=== PATIENT | female | born 1990 | race Hispanic/Latino ===

== ENCOUNTER 2020-08-23 09:19 | Inpatient (IN) | payer BC ==
[2020-08-23] MEDS ORDERED: NS / Oxytocin 40 units/1000ml 1,000 ML IV PRN (10:14)
[2020-08-23] MEDS ORDERED: Lidocaine 1% (PF) 30 ML VIAL SC PRN ×2 (10:14→10:30)
[2020-08-23] MEDS ORDERED: NS w/ Oxytocin 10 units 500 ML IV SCH ×2 (10:15)
[2020-08-23] MEDS ORDERED: Penicillin G Potassium 5 MILL.UNITS in Sodium Chloride 0.9% 100 ML IVPB SCH (10:15)
[2020-08-23] MEDS ORDERED: Misoprostol 100 MCG TAB VAG SCH (10:15)
--- NOTE | 2020-08-23 10:16 | PDOC.BPN ---
- Brief Progress Note Encounter Date: 08/23/20 Encounter Time: 10:09 FACULTY H&P Patient of Dr Aguilar HPI: 30 yo with 2 prior term deliveries here with possible LOF since last OM. Stated LOF last night and through the night and this AM. Denies VB or other complications. Good FM. EGA 35 weeks Review of Systems: complete ROS negative as per HPI Allergies NONE Past medical: Not significant PHYSICAL: VSS afebrile SSE with clear pooling. sent CX Cephalic on sono monitors: Reactive NST, no CTX Assessment and Plan: Prelabor ROM at 35 weeks: 1. admit 2. Swab for GBS 3. PNG until GBS back 4. Offered steroids as under 36 weeks 6 days. ALPS data and possible nondevelopment issues reviewed as well. They will consider. 5. Cytotec I have tiger texted Dr Funez to notify her but have not heard back yet
[2020-08-23 10:18] LABS: Amnisure Test RUPTURE DETECTED (No Rupture)
[2020-08-23 10:19] LABS: Amnisure Internal Control QC ACCEPTABLE (ACCEPTABLE)
[2020-08-23 10:24] VITALS: BMI 34.4
[2020-08-23] MEDS ORDERED: Ibuprofen 800 MG TAB PO PRN (10:30)
[2020-08-23] MEDS ORDERED: Butorphanol Tartrate 1 MG/ML VIAL SLOW IVP PRN (10:30)
[2020-08-23] MEDS ORDERED: Promethazine HCl 25 MG/ML VIAL IM PRN (10:30)
[2020-08-23] MEDS ORDERED: Misoprostol 200 MCG TAB PR PRN (10:30)
[2020-08-23] MEDS ORDERED: Ondansetron PF 4 MG/2 ML Vial IVP PRN (10:30)
[2020-08-23] MEDS ORDERED: Methylergonovine 0.2 MG/ML VIAL IM PRN (10:30)
[2020-08-23] MEDS ORDERED: Carboprost 250 MCG/ML AMP IM PRN (10:30)
[2020-08-23] MEDS ORDERED: Acetaminophen 500 MG TAB PO PRN (10:30)
[2020-08-23] MEDS ORDERED: HYDROcodone/Acetaminophen 5/325 mg Tablet PO PRN (10:30)
[2020-08-23] MEDS ORDERED: Diphenoxylate HCl/Atropine Tablet PO PRN (10:30)
[2020-08-23] MEDS ORDERED: hydrALAZINE 20 MG/ML VIAL SLOW IVP PRN (10:30)
--- NOTE | 2020-08-23 10:56 | PDOC.BPN ---
- Brief Progress Note Encounter Date: 08/23/20 Encounter Time: 10:55 Dr Aguilar has assumed care.She is managing orders and plan
--- NOTE | 2020-08-23 10:59 | PDOC.LDHP ---
Labor and Delivery H&P Chief complaint: loss of fluid HPI: 30 y/o @35.1 wks dated by 1T sono not c/w LMP. presents to LDR with suspected LOF. last night at 8 PM pt started to leak fluid vaginally, clear and slight mucus content. Denies vag bleeding, ctx. reports very good movements. states she wore a pad overnight and it was saturated with clear fluid this AM upon awakening. PCP: Dr. Aguilar Current gestational age (weeks): 35 (35.1) Due date: 09/26/20 Dating criteria: first trimester ultrasound Grav: 3 Para: 2 OB History Details: preg #1: term on 09/04/2014 Preg #2: term on 06/04/2017, with PIH not requiring treatment Current complications: none (dated by 1T von, has irregular periods.) Abnormal US findings: No Past Medical History: no known medical problems. Current medications: pre-angelica vitamins Previous surgical history: none Allergies/Adverse Reactions: Allergies Allergy/AdvReac Type Severity Reaction Status Date / Time No Known Allergies Allergy Verified 08/23/20 10:17 Social history: none - Physical Exam Vital signs reviewed and normal: yes General: NAD, resting Heart: RRR Lungs: CTAB Abdomen: gravid Extremeties: no edema FHT: category 1 (150 baseline with acels) Jarratt contractions every: none - Vaginal Exam cm dilated: 1 (11/03/high ) Effacement: 25% - OB Labs Additional Labs: no hx on unit - Assessment L&D Assessment: premature rupture of membranes 30 y/o @ 35.1 weeks dated by 1T von presents with suspected SROM on 08/22 @ 1999 1. sIUP @ 35.1 week - Pre-term - risk/benefits of steroid use discussed with pt. Parents deciding and will hold discussion with PCP. - GBS unknown, start pen G - Dr. Aguilar notified, who will resume care and treatment plan - FHT and TOCO monitoring. 2. PPROM - 35.0 weeks yesterday when suspected LOF - no ctx present on toco or reported from pt. - clear fluid pooling in vaginal vault from os on SSP. - Amnisure positive. - Dr. Aguilar to manage pt. Dispo: admit to L&D, care transferred to PCP, Dr. Aguilar. Plan verbalized to nursing staff was steroids and antibiotics. - Plan Plan: admit to L&D, GBS antibiotic prophylaxis
[2020-08-23] MEDS ORDERED: Betamet Acet/Betamet Na Ph 30 MG/5 ML VIAL ONE (11:36)
[2020-08-23] MEDS: Betamet Acet/Betamet Na Ph 30 MG/5 ML VIAL IM SCH (11:45)
[2020-08-23 12:23] LABS: Hemoglobin 11.7 g/dL (12.0-16.0); Mean Corpuscular HGB CONC 33.2 g/dL (32.0-36.0); Mean Corpuscular Hemoglobin 27.8 pg (27.0-31.0); Mean Corpuscular Volume 83.8 fL (78.0-98.0); Mean Platelet Volume 6.9 fL (7.4-10.4); Platelet Count 323 thou/uL (130-400); RBC Distribution Width 12.4 % (11.5-14.5); Red Blood Cell (RBC) Count 4.21 mill/uL (4.20-5.40); White Blood Cell (WBC) Count 9.3 thou/uL (4.8-10.8)
[2020-08-23 13:06] LABS: HBSAg Index 0.22 S/CO (0-0.99); Hep B Surf Ag Non-Reactive S/CO (NonReactive)
[2020-08-23 13:07] LABS: Syphilis Antibody Nonreactive (Nonreactive); Syphilis Antibody Index 0.03 S/CO (<1.00 Non-Reactive)
[2020-08-23] MEDS: Lactated Ringer's 1,000 ML IV SCH ×2 (17:09→20:10)
[2020-08-23] MEDS: Penicillin G 2.5 MILL.units 2.5 MILL.UNITS in Premix Bag 1 BAG IVPB SCH ×2 (17:09→20:41)
[2020-08-24] MEDS: Penicillin G 2.5 MILL.units 2.5 MILL.UNITS in Premix Bag 1 BAG IVPB SCH ×3 (00:05→08:10)
[2020-08-24] MEDS: Lactated Ringer's 1,000 ML IV SCH (04:11)
[2020-08-24] MEDS ORDERED: FLU VACC QS2020-21(6MOS UP)/PF 60 MCG/0.5 ML SYRINGE IM ONE (09:00)
[2020-08-24 10:27] LABS: SARS-CoV-2 MS2 Positive; SARS-CoV-2 N Gene Negative; SARS-CoV-2 S Gene Negative; SARS-CoV-2 by NAA Not Detected (NotDetected); SARS-CoV-2 orf1ab Negative
[2020-08-24] MEDS: Betamet Acet/Betamet Na Ph 30 MG/5 ML VIAL IM SCH (12:29)
--- NOTE | 2020-08-24 15:28 | PDOC.LDPN ---
Labor & Delivery Progress Note - Subjective Subjective: comfortable - Objective Vital signs reviewed and normal: yes General: NAD Uterine fundus: non tender FHT: category 1 [place] contractions every: 10 min -: 35w2d with PPROM BMZ second dose today, plan IOL tonight with po cytotec. On PCN for GBS unknown and prematurity. All questions answered. FHT Cat 1, no e/o abruption or IAI.
[2020-08-24] MEDS ORDERED: NS w/ Oxytocin 10 units 500 ML IV SCH (15:30)
[2020-08-24] MEDS: Misoprostol 100 MCG TAB PO SCH (20:47)
[2020-08-25] MEDS: Lactated Ringer's 1,000 ML IV SCH ×2 (00:05→05:42)
[2020-08-25] MEDS ORDERED: Bupivacaine 0.5% 20 ML, fentaNYL Citrate/PF 400 MCG in Sodium Chloride 0.9% 72 ML EPIDURAL SCH (00:15)
[2020-08-25] MEDS ORDERED: ePHEDrine 50 MG/ML VIAL SLOW IVP PRN (00:51)
[2020-08-25] MEDS ORDERED: Ondansetron PF 4 MG/2 ML Vial IVP PRN ×2 (00:51→04:48)
[2020-08-25] MEDS ORDERED: Promethazine HCl 25 MG/ML VIAL IM PRN ×2 (00:51→04:48)
[2020-08-25] MEDS ORDERED: Naloxone HCl 0.4 mg/ml Vial IVP PRN ×2 (00:51)
[2020-08-25] MEDS ORDERED: Acetaminophen 325 MG TAB PO PRN (00:51)
[2020-08-25] MEDS ORDERED: diphenhydrAMINE 50 MG/ML VIAL IVP PRN (00:51)
[2020-08-25] MEDS ORDERED: Lactated Ringer's 500 ML IV PRN (00:51)
[2020-08-25] MEDS ORDERED: Fentanyl 4 mcg/Bupivacaine 0.1% Cassette 100 ML EPIDURAL SCH (01:00)
[2020-08-25] MEDS ORDERED: Communication Order-Pharmacy FS SCH (01:00)
[2020-08-25] MEDS: Penicillin G 2.5 MILL.units 2.5 MILL.UNITS in Premix Bag 1 BAG IVPB SCH ×2 (01:30→05:42)
[2020-08-25] MEDS: NS / Oxytocin 40 units/1000ml 1,000 ML IV PRN ×2 (02:25→03:24)
--- NOTE | 2020-08-25 02:29 | PDOC.OPDEL ---
OB Operative/Delivery Note Delivery Dr/Surgeon: Jeff Assist: n/a Pre-Delivery Diagnosis: ruptured membrane Procedure/Post Delivery Dx: spontaneous vaginal delivery Weeks gestation: 35 Anesthesia: epidural - Findings A Sex: male - 1 min: 8 - 5 min: 9 - Additional Findings/Plan Placenta delivered: spontaneous Repaired Obstetrical Laceration: none Estimated blood loss: 50cc Post delivery plan: routine recovery
[2020-08-25] MEDS ORDERED: Bisacodyl 10 MG SUPP PR PRN (04:48)
[2020-08-25] MEDS ORDERED: Lanolin Ointment 7 GM TUBE TOP PRN (04:48)
[2020-08-25] MEDS ORDERED: diphenhydrAMINE 25 MG CAP PO PRN (04:48)
[2020-08-25] MEDS ORDERED: HYDROcodone/Acetaminophen 5/325 mg Tablet PO PRN ×2 (04:48)
[2020-08-25] MEDS ORDERED: NS / Oxytocin 40 units/1000ml 1,000 ML IV SCH (04:48)
[2020-08-25] MEDS ORDERED: Preparation H Ointment 28 GM TUBE PR PRN (04:48)
[2020-08-25] MEDS ORDERED: Milk Of Magnesia 30 ML UDCUP PO PRN (04:48)
[2020-08-25] MEDS ORDERED: Benzocaine-Menthol 82.5 ML CAN TOP PRN (04:48)
[2020-08-25] MEDS ORDERED: hydrALAZINE 20 MG/ML VIAL SLOW IVP PRN (04:48)
[2020-08-25] MEDS: Misoprostol 100 MCG TAB PO SCH ×2 (05:41→05:42)
[2020-08-25] MEDS: Ibuprofen 800 MG TAB PO SCH ×3 (05:56→22:03)
[2020-08-25] MEDS ORDERED: Adacel (T-DAP) 0.5 ML SYRINGE IM ONE (09:00)
[2020-08-25] MEDS: Prenatal Vitamin 1 TAB PO SCH (10:30)
[2020-08-25] MEDS: Docusate Calcium (SURFAK) 240 MG CAP PO SCH ×2 (10:30→22:04)
[2020-08-25] MEDS: Ferrous Sulfate 325 MG TAB PO SCH ×2 (10:31→20:43)
[2020-08-26] MEDS: Ibuprofen 800 MG TAB PO SCH ×2 (06:14→15:12)
[2020-08-26] MEDS: Ferrous Sulfate 325 MG TAB PO SCH ×2 (07:47→17:46)
[2020-08-26] MEDS: Docusate Calcium (SURFAK) 240 MG CAP PO SCH (08:57)
[2020-08-26] MEDS: Prenatal Vitamin 1 TAB PO SCH (08:57)
[2020-08-26 09:47] VITALS: BP 104/68; TEMP 98.1
--- NOTE | 2020-08-26 16:02 | PDOC.PP ---
Post Progress Note Post Day #: 1 PO intake tolerated: yes Flatus: yes Ambulation: yes Vital Signs (12 hours) Temp Pulse Resp BP Pulse Ox 08/26/20 08:00 98.1 F 61 18 104/68 98 Weight Weight 182 lb - Physical Examination General: NAD Respiratory: non-labored breathing Skin: no rash Neurological: no gross focal deficits Psychiatric: normal affect Result Diagrams: 08/23/20 12:13 Additional Labs: Post Labs Hep Bs Antigen Non-Reactive S/CO (NonReactive) 08/23/20 12:13 Blood Type O POSITIVE 08/23/20 12:13 - Assessment/Plan PPD1 s/p PTSVD at 35w 2/2 PPROM VSSAF Doing well, lochia < menses Rh pos RImm DC home FU 6w
[2020-08-27] MEDS ORDERED: FLU VACC QS2020-21(6MOS UP)/PF 60 MCG/0.5 ML SYRINGE IM ONE (10:00)
== END 2020-08-26 18:00 | disposition home or self-care (01) | DRG 807 ==
LOC: L&D/OP 09:19 → L&D 12:40 → 3SW 08-25 05:55
PROVIDERS: ADMIT Student in an Organized Health Care Education/Training Program; ATTEND Student in an Organized Health Care Education/Training Program
PROC: 10E0XZZ Delivery of Products of Conception, External Approach (ICD-10-PCS; principal; 2020-08-25)
PROC: 3E02340 Introduction of Influenza Vaccine into Muscle, Percutaneous Approach (ICD-10-PCS; 2020-08-26)
DX: O60.14X0 Preterm labor third trimester with preterm delivery third trimester, not applicable or unspecified (principal); Z37.0 Single live birth; Z3A.35 35 weeks gestation of pregnancy; Z20.828 Contact with and (suspected) exposure to other viral communicable diseases; Z23 Encounter for immunization
CPT/HCPCS: 51702; 84112; 85027; 86780; 86850; 86900; 86901; 87081; 87340; 87635; 90471; 90662; 99285; G0008; J0702; J2540; J3010; J3490; U0003

== ENCOUNTER 2020-08-29 14:08 | Inpatient (IN) | payer BC ==
[2020-08-29] MEDS ORDERED: Acetaminophen 325 MG TAB ONE (14:41)
[2020-08-29] MEDS ORDERED: Cefepime 2 GM VIAL ONE (14:41)
[2020-08-29 14:47] LABS: #Lymphocytes 1.9 thou/uL (1.20-3.40); #Monocytes 0.5 thou/uL (0.11-0.59); #Neutrophils 8.9 thou/uL (1.40-6.50); %Basophils 0.3 % (0.0-1.0); %Eosinophils 0.2 % (0.0-10.0); %Lymphocytes 16.8 % (21.0-51.0); %Monocytes 4.5 % (0.0-10.0); %Neutrophils 78.1 % (42.0-75.0); Hemoglobin 13.4 g/dL (12.0-16.0); Mean Corpuscular HGB CONC 33.4 g/dL (32.0-36.0); Mean Corpuscular Hemoglobin 27.3 pg (27.0-31.0); Mean Corpuscular Volume 81.7 fL (78.0-98.0); Platelet Count 401 thou/uL (130-400); RBC Distribution Width 13.2 % (11.5-14.5); White Blood Cell (WBC) Count 11.3 thou/uL (4.8-10.8)
[2020-08-29 15:02] LABS: ALT (SGPT) 55 U/L (8-55); AST (SGOT) 25 U/L (5-34); Albumin 3.3 g/dL (3.5-5.0); Alkaline Phosphatase 177 U/L (40-110); Anion Gap 14 mmol/L (10-20); BUN (Urea Nitrogen) 16 mg/dL (7.0-18.7); Bilirubin, Total 0.5 mg/dL (0.2-1.2); Calc. Creatinine Clearance 0 mL/min (70-130); Calcium 8.7 mg/dL (7.8-10.44); Carbon Dioxide 25 mmol/L (22-29); Chloride 103 mmol/L (98-107); Estimated GFR-MDRD 75; Globulin 3.5 g/dL (2.4-3.5); Glucose 93 mg/dL (70-105); Potassium 3.3 mmol/L (3.5-5.1); Protein, Total 6.8 g/dL (6.0-8.3); Sodium 139 mmol/L (136-145)
[2020-08-29] MEDS ORDERED: Iopamidol-370 76% 500 ML 1 ML ONE (15:17)
[2020-08-29] MEDS ORDERED: Magnevist 469MG/ML 20 ML VIAL ONE (15:25)
[2020-08-29 15:44] LABS: Bilirubin Negative (Negative); Blood, Urine Negative (Negative); Clarity Clear (Clear); Glucose, Urine (Dipstick) Normal (Negative); Ketone, Urine Negative (Negative); Leukocyte Negative Leu/uL (Negative); Nitrite Negative (Negative); Protein, Urine (Dipstick) Negative (Neg-Trace); Specific Gravity, Urine 1.016 (1.002-1.036); Urobilinogen Normal mg/dL (Less than 2); pH, Urine 6.5 (5.0-9.0)
--- NOTE | 2020-08-29 15:46 | ULT ---
EXAM: Pelvic ultrasound HISTORY: Abdominal pain and fever. Recent COMPARISON: None TECHNIQUE: Multiple grayscale and color Doppler images were obtained in a transabdominal pelvic ultra sound. FINDINGS: CERVIX: No evidence of nabothian cysts. UTERUS: Enlarged secondary to recent state. No intrauterine air is identified. ENDOMETRIAL STRIPE: 2.5 cm. No free fluid is seen in the pelvis. RIGHT OVARY: Not visualized LEFT OVARY: Not visualized IMPRESSION: Enlarged uterus without obvious retained products of conception
--- NOTE | 2020-08-29 15:49 | CT ---
Exam: Head CT without contrast HISTORY: Altered mental status and headache. COMPARISON: none FINDINGS: Hemorrhage: There is a intraparenchymal hematoma in the left frontal lobe with associated edema the o verall affected brain parenchyma measures 3.9 x 3.5 cm. There appears be small amounts of subarachnoid and subdural blood. There is mass effect upon the anterior sagittal sinus. 0.6 cm of lef t-to-right subfalcine herniation. Brain parenchyma: Cortical chung-white matter differentiation is preserved. No mass effect or midline shift. Basilar cisterns are patent. Ventricular system: Ventricles and sulci are patent and symmetric. Calvarium: Intact. Sinuses and mastoid air cells: Adequate aeration. IMPRESSION: 1. Intraparenchymal hemorrhage along with additional areas of extra-axial hemorrhage. Correlate for p ossible hemorrhage due to venous sinus thrombosis. CT angiogram of the head and neck is recommended Results study discussed with Dr. Morin 08/29/2020 at 3:46 PM Code CR
--- NOTE | 2020-08-29 16:12 | PDOC.FPRHP ---
- History of Present Illness Chief Complaint: Fever, AMS History of Present Illness: Pt is a 30 yo F with no significant past medical history who presents for headache. She had a vaginal delivery on 08/25/20 and is post- day #4. She received an epidural. According to patient's , she has had neck pain and nuchal ridgity since leaving the hospital. It continued to develop into a headache and photosensitivity. The patient's baby had a f/u appointment today and was admitted for phototherapy. During this time, the patient began acting altered so the brought the patient down to the ER for evaluation. Of note, the patient was taken to the CT scanner for CT angio. During administration of contrast, patient experienced a seizure. The patient was brought back to ED 19 for stabilization. At that time she was sedated and intubated. Before sedation, patient did withdrawal to painful stimulus. - Allergies/Adverse Reactions Allergies Allergy/AdvReac Type Severity Reaction Status Date / Time No Known Allergies Allergy Verified 08/29/20 22:07 - Home Medications Medication Instructions Recorded Confirmed Type Pnv No.95/Ferrous Fum/Folic AC 1 tab PO DAILY 08/23/20 08/29/20 History [ Caplet] Ibuprofen [Motrin] 800 mg PO Q8HR #30 tab 08/26/20 08/29/20 Rx - History PMHx: No significant PMH PSHx: No significant PSHx FHx: noncontributory Social: no a/t/d; PPD 4 s/p on 08/25 - Review of Systems ROS unobtainable: due to endotracheal tube General: reports: fever/chills Eyes: reports: other (Photophobia) ENT: reports: other (Phonophobia) Neurological: reports: other (Headache, nuchal rigidity) - Vital signs BP: 152/93 HR: 83 RR: 18 Tmax: 99.5 Pox: 98% on RA, now on Vent s/p seizure Wt: 82.55kg - Physical Exam -Constitutional: Sedated, intubated -HEENT: conjuctival injection, equal pinpoint pupils, bleeding from tongue Neck: supple, trachea midline Heart: RRR, normal S1/S2, no murmurs/rubs/gallops Lungs: CTAB, no rales/rhonchi, no wheezing, no retractions Abdomen: soft, bowel sounds present Musculoskeletal: normal structure -Neurological: withdrawal to pain prior to sedation, neuro exam difficult to assess due to sedation Skin: no rash/lesions, no jaundice Heme/Lymphatic: no unusual bruising or bleeding -Psychiatric: unable to obtain FMR H&P: Results - Labs Result Diagrams: 08/30/20 03:33 08/30/20 03:33 Lab results: WBC 11.3 thou/uL (4.8-10.8) H 08/29/20 14:34 Hgb 13.4 g/dL (12.0-16.0) 08/29/20 14:34 Hct 40.0 % (36.0-47.0) 08/29/20 14:34 MCV 81.7 fL (78.0-98.0) 08/29/20 14:34 Plt Count 401 thou/uL (130-400) H 08/29/20 14:34 Neutrophils % 78.1 % (42.0-75.0) H 08/29/20 14:34 Sodium 139 mmol/L (136-145) 08/29/20 14:34 Potassium 3.3 mmol/L (3.5-5.1) L 08/29/20 14:34 Chloride 103 mmol/L (98-107) 08/29/20 14:34 Carbon Dioxide 25 mmol/L (22-29) 08/29/20 14:34 BUN 16 mg/dL (7.0-18.7) 08/29/20 14:34 Creatinine 0.87 mg/dL (0.6-1.1) 08/29/20 14:34 Glucose 93 mg/dL (70-105) 08/29/20 14:34 Lactic Acid 1.0 mmol/L (0.5-2.2) 08/29/20 14:34 Calcium 8.7 mg/dL (7.8-10.44) 08/29/20 14:34 Total Bilirubin 0.5 mg/dL (0.2-1.2) 08/29/20 14:34 AST 25 U/L (5-34) 08/29/20 14:34 ALT 55 U/L (8-55) 08/29/20 14:34 Alkaline Phosphatase 177 U/L (40-110) H 08/29/20 14:34 Serum Total Protein 6.8 g/dL (6.0-8.3) 08/29/20 14:34 Albumin 3.3 g/dL (3.5-5.0) L 08/29/20 14:34 Urine Ketones Negative mg/dL (Negative) 08/29/20 15:25 Urine Blood Negative (Negative) 08/29/20 15:25 Urine Nitrite Negative (Negative) 08/29/20 15:25 Ur Leukocyte Esterase Negative Grazyna/uL (Negative) 08/29/20 15:25 - Radiology Interpretation Other Status: report reviewed by me Additional comment: Enlarged uterus without any signs of retained products of conception CT scan - head Status: image reviewed by me, report reviewed by me Additional comment: Intraparenchymal hemorrhage along with additional areas of extra-axial hemorrhage. Correlate for possible hemorrhage due to venous sinus thrombosis. CT angio recommended. FMR H&P: A/P - Problem List (1) Intraparenchymal hemorrhage of brain Current Visit: Yes Status: Acute Code(s): I61.9 - NONTRAUMATIC INTRACEREBRAL HEMORRHAGE, UNSPECIFIED (2) Cerebral venous sinus thrombosis Current Visit: Yes Status: Acute Code(s): G08 - INTRACRANIAL AND INTRASPINAL PHLEBITIS AND THROMBOPHLEBITIS (3) Leukocytosis Current Visit: Yes Status: Acute Code(s): D72.829 - ELEVATED WHITE BLOOD CELL COUNT, UNSPECIFIED (4) Neutrophilia Current Visit: Yes Status: Acute Code(s): D72.9 - DISORDER OF WHITE BLOOD CELLS, UNSPECIFIED (5) Fever Current Visit: Yes Status: Acute Code(s): R50.9 - FEVER, UNSPECIFIED - Plan Pt is a 30 yo F with no significant past medical history who presents for headache and AMS. Intra-parenchymal hemorrhage and Venous Sinus Thrombosis likely 2/2 to infection (post-epidural) vs. coagulopathy vs. eclampsia - CT: intra-parenchymal hemorrhage with additional areas of extra-axial hemorrhage with possible venous sinus thrombosis - Neurosurgery consulted (08/29), appreciate recommendations * keep sedated * loaded with keppra, if continues to seize despite med could consider phenytoin * SBP goal of 120-140 - repeat CT and CTA once stabilized - will obtain coag panel, cerebral vein thrombosis can be a rare presentation of prothrombin gene mutation - will obtain eclampsa labs, if Pr/Cr ratio is .3 or higher --> give mag (load 4 g followed by 2 g/hr) - TTE ordered - could consider giving mag if patient continues to seize Fever of Unknown Origin, likely neurogenic 2/2 to the above vs. post- instrumental infection - s/p cefepime in the ED - leukocytosis with left shift, febrile upon arrival to ED - WBC: 11.3, neutrophils: 78.1% - patient received epidural, so post-instrumental infection is possible - will start cefepime and vanc - procal, blood cx, urine cx pending Code Status: Full Diet: NPO IVF: SL DVT PPx: SCDs GI PPx: Protonix PCP: CC Dispo: will admit to ICU, neurosurgery consulted and following FMR H&P: Upper Level - Pertinent history Pt is a 30 yo with no significant past medical history who presented to the hospital with headache. She had a vaginal delivery on 08/25/20 and is post- day 4. The said that she was having difficulty with neck movements. She had headaches and started experiencing photophobia and phonophobia In the ED, she received Tylenol, Cefepime, and 2L of fluids. She was intubated with succinylcholine and etomidate in the ED. VSS: T: 99.9 HR: 107 BP: 152/93 RR: 18 O2: 98 on RA Wt: 82.[address] Brain w/o contrast: shows intrapranchymial hemorrhage with extravasation with venous sinus thrombosis US of Pelvis: No retained products of conception ROS: unable to obtain. Patient seized in CT Exam General: Patient is lethargic HEENT: Normocephalic, atraumatic. Pinpoint pupils with pterygiums bilateral. Conjunctival injection. Swollen tongue with bleeding in the oropharynx from biting her tongue Cardio: Tachycardiac, no murmur Lungs: CTAB, no wheezing Gastro: Normal bowel sounds Neurologic: withdraws to pain Extremities: No edema, posterior tibial pulses and dorsalis pedis 2+ bilaterally Skin: Normal turgor, no rash Assessment & Plan 1. Intra parenchymial Hemorhage & Venous Thrombosis 2/2 Infection from Instrumentation vs Eclampsia vs. Coagulopathy a. Infection: * WBC: 13 with left shift * Ordered Procal * Received Cefepime in the ED. Will continue Cefepime and start Vanc * Blood Culture and urine culture obtained * UA Neg * May need imaging of the spine b. Eclampsia * Will get random urine protein and creatinine * Consider Mag, will obtain pre-E labs c. Coagulopathy * Will get PT, PTT, INR * Will get Coagulopathy panel * ECHO ordered * Consider prothrombin gene mutation mutation with genetic PCR assay d. General * Neurosurgery consulted (08/29), appreciate recs. Will likely take back tonight for surgery. * Keep systolic blood pressure in 120-140s * Sedation protocol * Keppra for seizures * Phenytoin if refractory to keppra and propofol Code Status: Full Diet: NPO IVF: None DVT PPx: SCDs GI PPx: Protonix PCP: CC Dispo: Admit to inpatient ICU. - Plan Date/Time: 08/29/20 0751 I, Gregorio Norton, have evaluated this patient and agree with findings/plan as outlined by regulatory affairs intern resident. Pertinent changes/additions are listed here. Addendum - Attending - Attending Attestation Date/Time: 08/30/20 [id number] I personally evaluated the patient and discussed the management with Dr. Cochran/Errol. I agree with the History, Examination, Assessment and Plan documented above with any addition or exceptions noted below. See my dictated H&P for details.
[2020-08-29 16:13] LABS: INR-International Normal Ratio 0.9; PTT 27.4 sec (22.9-36.1); Prothrombin Time 12.6 sec (12.0-14.7)
[2020-08-29] MEDS ORDERED: Lorazepam 2 MG/ML VIAL ONE (16:22)
[2020-08-29] MEDS ORDERED: levETIRAcetam 500 MG/100 ML PREMIX BAG ONE ×2 (16:26→16:29)
[2020-08-29] MEDS ORDERED: Succinylcholine 200 MG/10 ml SYRINGE FS ONE ×2 (16:27→16:43)
[2020-08-29] MEDS ORDERED: niCARdipine 20MG In NaCl 0 MG/0 ML BAG ONE (16:30)
[2020-08-29] MEDS ORDERED: niCARdipine 20MG In NaCl 20 MG/200 ML BAG ONE (16:36)
[2020-08-29] MEDS ORDERED: Fentanyl 100 MCG/2 ML VIAL ONE (16:47)
[2020-08-29] MEDS ORDERED: Propofol 1,000 MG/100 ML VIAL IV ONE ×2 (16:47→16:50)
[2020-08-29] MEDS ORDERED: fentaNYL Citrate/PF 2,000 MCG in Sodium Chloride 0.9% 60 ML IV SCH ×2 (17:00→18:30)
--- NOTE | 2020-08-29 17:12 | RAD ---
Chest one view HISTORY: Chest pain. Fever. Intubated. FINDINGS: Cardiac silhouette is magnified and Shifted leftward with patient rotation. Left hemidiaphr agm obscured. Prominent increase in density at the left base. Tip of an endotracheal catheter overlies the upper portion of the right mainstem bronchus. Nasogastri c tube descends to the stomach. Shallow inspiration accentuates pulmonary markings. No evidence of pneumothorax. IMPRESSION : Endotracheal catheter should probably be withdrawn approximately 2-3 cm better positioning. Dense opacity at the left base could represent left lower lobe pneumonia or atelectasis, possibly rel ated to right mainstem bronchus intubation. Please consider continued radiographic follow-up. Findings were called to Stefano in the emergency department at 1705 hours. Code CR.
[2020-08-29 17:18] LABS: Actual Bicarbonate (HCO3a) 15.9 mEq/L (22-28); Analyzer IN Cardio ER; Base Excess (BEa) -7.7 mEq/L (-2.0 to +3.0); CO2 Tension 27.2 mmHg (35.0-45.0); Calcium, Ionized (arterial) 1.08 mmol/L (1.12-1.30); Carboxyhemoglobin (COHb) 0.3 gm% (0.0-3.0); Hemoglobin (Hb) 12.2 g/dL (12.0-16.0); O2 Tension (PaO2), arterial 206.3 mmHg (80.0-100.0); Potassium - ABG Lab 3.13 mmol/L (3.70-5.30); pH, Arterial 7.38 (7.35-7.45)
[2020-08-29 17:22] LABS: Puncture Site LRA
--- NOTE | 2020-08-29 17:34 | RAD ---
Portable frontal chest radiograph: 08/29/2020 5:19pm COMPARISON: 08/29/2020 4:54 pm HISTORY: Evaluate following intubation FINDINGS: The endotracheal tube is approximately 4.9 cm distal to the level of the clavicular heads, likely extending into the region of the nathanael, similar when compared to prior imaging. Stable nasogastric tube. Focal opacity again noted in the left lung base suggesting partial consolidation/collapse of the left lower lobe. IMPRESSION: Low-lying endotracheal tube. Recommend retraction and repeat imaging.
[2020-08-29] MEDS ORDERED: Ondansetron PF 4 MG/2 ML Vial IVP PRN (18:06)
[2020-08-29] MEDS ORDERED: Mag-Al 1200 mg/1200 mg/30 ML UDCUP PO PRN (18:06)
[2020-08-29] MEDS ORDERED: Bisacodyl 10 MG SUPP PR PRN (18:06)
[2020-08-29] MEDS ORDERED: Docusate 100 MG CAP PO PRN (18:06)
[2020-08-29] MEDS ORDERED: niCARdipine 25 MG in Sodium Chloride 0.9% 250 ML 240 ML IVPB PRN (18:06)
[2020-08-29] MEDS ORDERED: Electrolyte Replacement Protoc 1 EACH EACH IVPB SCH (18:06)
[2020-08-29] MEDS ORDERED: Milk Of Magnesia 30 ML UDCUP PO PRN (18:06)
[2020-08-29] MEDS ORDERED: HumaLOG 300 UNITS/3 ML VIAL SC PRN ×2 (18:10)
[2020-08-29] MEDS ORDERED: Ventilator Sedation Protocol 1 EACH FS SCH (18:15)
[2020-08-29 18:30] LABS: Protein, Urine Random Quant Less than 10 mg/dL (1-14)
[2020-08-29] MEDS ORDERED: Morphine 2 MG/ML VIAL SLOW IVP PRN (18:30)
[2020-08-29] MEDS ORDERED: DISCONTINUE PREVIOUS NARCOTIC PAIN MEDICATIONS AND BENZODIAZEPINES FS SCH (18:30)
[2020-08-29] MEDS ORDERED: Lorazepam 2 MG/ML VIAL SLOW IVP PRN (18:30)
[2020-08-29] MEDS ORDERED: Propofol BOLUS 1,000 MG/100 ML VIAL IV PRN (18:30)
[2020-08-29] MEDS ORDERED: Fentanyl BOLUS 250 ML IVPB PRN (18:30)
--- NOTE | 2020-08-29 18:35 | CT ---
CT angiogram of the head and neck: 08/29/2020 COMPARISON: Head CT 08/29/2020 3:43 PM History: Headache, intracranial hemorrhage, recent delivery TECHNIQUE: Axial CT imaging at 5 mm intervals from vertex through skull base without contrast. Then, axial CT imaging obtained at 1.25 mm intervals from the lung apices through the vertex with IV contrast using CT angiogram protocol. Coronal and sagittal 3-D reformatted imaging obtained. FINDINGS: The noncontrast enhanced head CT demonstrates an intra-axial hematoma in the left frontal r egion measuring 4.4 cm in AP dimension, slightly enlarged when compared to the prior exam at which time it measured 3.9 cm in AP dimension. There is significant surrounding vasogenic edema with mild m ass effect on the frontal horn of the left lateral ventricle. There is mild left to right midline shift involving the anterior aspect of the interhemispheric fissure measuring approximately 5 mm, sim ilar when compared to prior imaging. Small volume adjacent midline subdural blood and anterior left frontal subarachnoid blood suspected. The imaged lung apices demonstrate nonspecific mild patchy areas of increased linear density bilatera lly. There is an Endo tracheal tube and enteric tube in place, incompletely imaged on this examination. The retroantral fat and parapharyngeal fat appears clear bilaterally. The parotid glands and submandi bular glands appear grossly unremarkable. The tonsillar pillars, epiglottis and preepiglottic fat, hyoid bone, thyroid cartilage, cricoid cartilage, and level of the glottis appear grossly unremarkabl e, not optimally assessed secondary to presence of endotracheal tube and nasogastric tube. The origin of the innominate artery, right subclavian artery, right common carotid artery, left commo n carotid artery, left subclavian artery, and bilateral vertebral arteries appears grossly unremarkable. On the basis of NASCET criteria there is no hemodynamically significant stenosis involving the arteri al structures of the neck. The vertebral arteries appear patent bilaterally. The vertebral artery on the left is dominant. The M1 segment, the MCA bifurcation, the A1 segment, the distal DAWSON branches, and the distal MCA bran ches appear grossly unremarkable. The superior sagittal sinus, the torcula, the transverse sinuses, the sigmoid sinuses, and the post graduate intern al jugular veins appear unremarkable. The straight sinus and the vein of Willie appear patent as well. No evidence for an arteriovenous malformation is seen in the left frontal region. No discrete cortica l vein thrombosis is seen although focal areas of cortical venous thrombosis may be difficult to visualize on CT angiography. There is no saccular aneurysm, high-grade stenosis, or vascular occlusion seen involving the anterior or the posterior circulation. There is a patent posterior communicating artery on the right. The osseous structures demonstrate no acute findings. IMPRESSION: Intra-axial hematoma in the left frontal lobe with adjacent extra-axial blood as detailed above. Surrounding vasogenic edema and evidence of mass effect. Please see above discussion. No acute arterial abnormality. No CT angiographic evidence for dural venous thrombosis. Cortical venous thrombosis is difficult to exclude via CT angiography.
[2020-08-29 18:43] LABS: SARS-CoV-2 NAA Rapid Test Not Detected (NotDetected)
[2020-08-29] MEDS ORDERED: Dexamethasone 10 MG/ML VIAL ONE (19:02)
--- NOTE | 2020-08-29 20:09 | CON ---
DATE OF CONSULTATION: 08/29/2020 TIME OF SERVICE: 03:00 p.m. LOCATION: ER bed 19. CONSULTING PHYSICIAN: Dr. Morin, Emergency Medicine HISTORY OF PRESENT ILLNESS: This is a 30-year-old G3, P3, 4 days from a normal spontaneous vaginal delivery. Her labor and delivery was uncomplicated, and she was discharged home on 08/26. She was brought in today by her for increasing confusion. She has been complaining of headache and abdominal pain since yesterday per report. I could not obtain a history from the patient herself due to her significant confusion. 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 Her was not present at the time of my encounter. The remainder of her history and physical is from chart review from her admission on 08/23. CRIMINAL JUDGE HISTORY: She has had 3 spontaneous vaginal deliveries. She has had a history of preeclampsia with her 2nd , not requiring treatment. PAST MEDICAL HISTORY: None. PAST SURGICAL HISTORY: None. MEDICATIONS: vitamins. She was also discharged home on ibuprofen 800 mg q.8 hours p.r.n. SOCIAL HISTORY: Negative. PHYSICAL EXAMINATION: VITAL SIGNS: Blood pressure 140s/80s, pulse in the 70s, temperature 101. GENERAL: Awake and alert, but not oriented to person, place, or time. She does not appear to be in any acute distress. ABDOMEN: Soft, nontender. No fundal tenderness. Exam otherwise deferred. ASSESSMENT AND PLAN: A 30-year-old G3, P3 with significant altered mental status. She does not have any evidence of endometritis at this point or infection related to her status. I recommend an extensive workup for other sources of altered mental status with brain imaging as well as looking for other sources of infection. If there appears to be no other source, then we will admit her for antibiotic therapy for presumed endometritis. Thank you for this consultation. Please let me know if I can be of any further assistance. Job ID: [id number] [id number]
[2020-08-29 20:30] LABS: PTT 24.8 sec (22.9-36.1); Prothrombin Time 13.1 sec (12.0-14.7)
[2020-08-29 20:31] LABS: D-Dimer Test 2.44 *mcg/mL (0.27-0.43)
[2020-08-29] MEDS ORDERED: levETIRAcetam 500 MG TAB PO SCH (21:00)
[2020-08-29] MEDS ORDERED: Famotidine/PF 20 mg/2ml Vial SLOW IVP SCH (21:00)
[2020-08-29] MEDS ORDERED: Vancomycin HCl 1.5 GM in Sodium Chloride 0.9% 250 ML 300 ML IVPB SCH (21:00)
--- NOTE | 2020-08-29 21:27 | CON ---
DATE OF CONSULTATION: 08/29/2020 HISTORY OF PRESENT ILLNESS: Patient is a 30-year-old female, who is 6 days status post spontaneous vaginal delivery with epidural at that time, who was brought to the ER today for headache and confusion. History is somewhat limited as there is no family at the bedside and patient unable to provide any history. Family reported to EMS that the patient had been doing well and was discharged home on 08/26/2020. They report she had gradual developing headache and significant confusion today. They contacted the EMS, who brought her to the emergency department. A noncontrast CT head was done, which showed an acute left frontal intraparenchymal hemorrhage with concern for possible venous sinus thrombosis. An attempt was made to get a CTA, however, while patient was in the scanner, she had a sudden grand mal seizure event. She was treated with 2 mg of Ativan and loaded with 1 g of Keppra and subsequently intubated. I examined the patient just after the seizure event. Her pupils were both large and sluggish to reactivity, approximately 5 mm each. There was a leftward deviation to both of her pupils. She would withdraw briskly over all fours and would localize the pain to sternal rub. Her labs showed normal PT and INR as well as PTT, and platelets 400. Her white blood cell count was 11.3. She was febrile in the emergency department up to 101.9. Blood pressure was slightly elevated systolic 150s on arrival. Past medical history, past surgical history, family history, and social history as well as ROS are all limited by patient's current condition. PHYSICAL EXAMINATION: VITAL SIGNS: BP is currently 121/78, respirations 24, and she is 100% on mechanical ventilator. She is tachycardic, 108 currently. Temperature is 99.9. HEENT: Head, no signs of trauma. Eyes, pupils are both large, approximately 5 mm, sluggish reactivity, leftward deviation noticed. ENT, endotracheal tube is in place. Patient does have a positive gag reflex. She has edema to the tongue and appears to have tongue bleeding and possible laceration following recent seizure event. CARDIOPULMONARY: She is slightly tachycardic. She is being mechanically ventilated. Has symmetric chest expansion. Breath sounds are heard bilaterally. MUSCULOSKELETAL: She has symmetric pulses throughout. No overt signs of trauma. SKIN: [place] and warm. NEUROLOGIC: Patient had a GCS of 8, E2 V1 M5. She would withdraw briskly over all fours and would localize pain to sternal rub. ASSESSMENT AND PLAN: This is a 30-year-old female, who is six days , who had acute headache and confusion and found to have a left frontal intraparenchymal hemorrhage. There is concern for possible venous sinus thrombosis. Once she is stabilized, we will plan to repeat her noncontrast CT head to see if there is any progression of the bleed as well as check a CTA to look for any signs of venous sinus thrombosis or other abnormality. We will follow these results closely. We will work on getting her admitted to the CCU and the Medicine team will be admitting primary with us consulting. We will also ask Neurology to consult to assist with seizure management and any other neurologic condition that we may find. We will monitor blood pressure closely with a systolic goal of less than 140. We will start nicardipine drip if needed. I have discussed this plan with Dr. Long, who is in agreement. Job ID: [id number] MTDD
--- NOTE | 2020-08-29 21:53 | MRI ---
MR venogram: 08/29/2020 COMPARISON: None HISTORY: Clinical concern for dural venous thrombosis TECHNIQUE: [id number] MR angiography of the brain obtained. FINDINGS: The superior sagittal sinus appears patent. The straight sinus and vein of Willie appear grossly unremarkable. The torcula, internal jugular veins , sigmoid sinus, and transverse sinus appears grossly unremarkable bilaterally. Internal cerebral veins appear patent. IMPRESSION: No convincing evidence for dural venous sinus thrombosis.
--- NOTE | 2020-08-29 22:02 | HP ---
CHIEF COMPLAINT: Altered mental status. HISTORY OF PRESENT ILLNESS: I have reviewed all documentation and discussed the care and management of this patient with Drs. Cochran and Errol. I agree with all the documentation in their H and P unless otherwise stated in the following attestation. In summary, Ms. Sharma is an unfortunate 30-year-old female who is a 3, para 3-0-0-3 and is day #4. She presented today with a chief complaint of neck pain and nuchal rigidity that started shortly after she left the hospital on 08/26/2020. Per the patient's , her neck pain acutely worsened throughout the next 2 days and she began to have increasing altered mentation. They brought her to the emergency room for evaluation. She was initially found to have an intraparenchymal hemorrhage in the left frontal lobe with concern for possible venous sinus thrombosis. While she was attempting to undergo CTA of the head and neck to evaluate further venous sinus thrombosis, she experienced a seizure and was subsequently intubated and sedated for airway protection. Per report, prior to her seizure, she was following commands and withdrawing to pain on all 4 extremities. However, after the seizure, her left pupil was noted to be dilated and she was noted to have deviation of her left eye. At the time of my examination, she was intubated and sedated. Please see resident's note for past medical, surgical, family, social histories, as well as allergies and medications. FOCUSED PHYSICAL EXAMINATION: VITAL SIGNS: Blood pressure 108/67 with a maximum blood pressure of 161/86, which occurred approximately at time she experienced a seizure. She had several elevated blood pressures in the 140s to 150s prior to this. Pulse is 87, respiratory rate 18, SpO2 of 100% on mechanical ventilation. GENERAL: Intubated, sedated, and nonresponsive. HEENT: Normocephalic, atraumatic. Pupils are equal and pinpoint. Per report, there was noted to be a significant amount of bleeding coming from her tongue. CARDIOVASCULAR: Normal rate, regular rhythm. No murmurs, rubs, or gallops. LUNGS: Clear to auscultation bilaterally. NEUROLOGIC: She was paralyzed apparently at time of exam. Please see above documentation for prior neurologic exams. PERTINENT LABORATORY FINDINGS: Hemoglobin 11.3, platelets 401. PT 12.9, INR 0.9, APTT 27.4. ABGs post intubation; pH 7.38, pCO2 of 27, PO2 of 206, bicarb 15.9, potassium 3.3, alkaline phosphatase 177 (this is likely related to the status). Albumin 3.3. Urinalysis was negative for protein. IMAGING DATA: Pelvic ultrasound report reviewed and large uterus without products of conception. CT of the brain, images and report reviewed by me. Large left frontal lobe intraparenchymal hemorrhage, reportedly read concern for venous sinus thrombosis. Chest x-ray, low-lying endotracheal tube. ASSESSMENT: Ms. Sharma is a 30-year-old G3, P3-0-0-3, who presented with a chief complaint of altered mental status. She was found to have a left frontal lobe intraparenchymal hemorrhage with minimal midline shift. She has since undergone a seizure and has had worsening neurological deficits. She is currently intubated and sedated and waiting to complete the evaluation of her hemorrhage. PLAN: 1. Left frontal intraparenchymal hemorrhage. At this time, the cause of the hemorrhage is unclear. Still awaiting CTA of the head and neck to further evaluate for sinus venous thrombosis. Neurosurgery has been consulted and has already evaluated the patient. They are waiting for these additional studies to determine whether the patient will need anticoagulation versus surgical intervention versus medical management. They request that Neurology be consulted for management of the seizures. Given the fact that patient is within 6 weeks and she had several elevated blood pressures over 140/90 prior to and during her seizure, urine protein creatinine ratio has been ordered to evaluate for preeclampsia/eclampsia. Although this would be a very atypical presentation for preeclampsia, it is still a possibility. If the protein creatinine ratio comes back elevated, we will load her with IV magnesium 4 g and then start at 2 g an hour for at least the next 24 hours. I spoke with the patient's at length after evaluating the patient and he declines a family history of hypercoagulability or thrombotic events. She has not had any prior miscarriages that would suggest some sort of underlying coagulopathy. Nonetheless, we will order coagulation panel on her before she potentially start anticoagulation. PT, OT, and speech therapy consulted after she stabilizes. 2. Acute respiratory distress. This is due to her worsening neurological deficits. Continue mechanical ventilation and sedation. Pulmonology will be consulted as she is going to the ICU. 3. Rule out preeclampsia. See details above. DISPOSITION: She was admitted under inpatient status and placed in the critical care unit. Length of stay will be greater than 2 midnights. She is currently in critical condition. Approximately 35 minutes critical care time were spent by me in direct care of this patient. Job ID: [id number] MTDD
--- NOTE | 2020-08-29 22:06 | MRI ---
Brain MRI with and without contrast: 08/29/2020 COMPARISON: None HISTORY: Intracranial hemorrhage TECHNIQUE: Multiplanar multisequence MR imaging of the brain is obtained with and without contrast FINDINGS: The axial gradient echo imaging demonstrates a prominent area of blooming artifact within t he left frontal lobe measuring 4.7 x 3.0 cm consistent with an intra-axial hemorrhage. It demonstrates prominent complexity on the T1 and T2 weighted imaging with a fluid/fluid level on the T 2-weighted imaging. There is significant surrounding vasogenic edema. There is mass effect on the adjacent frontal horn of the left lateral ventricle and there is left to right midline shift measurin g in the 5-6 mm range. No evidence for acute infarction is noted. There are linear areas of increased signal intensity on the FLAIR imaging within cortical sulci in th e superior anterior aspect of bilateral frontal lobes, left greater than right, suggesting associated subarachnoid blood. Small volume associated subdural blood is also noted in the left front al region. There is a suggestion of small volume subarachnoid blood within the interpeduncular cistern as well. The arterial flow voids at the axial level of the skull base appear grossly unremarkable on the T2-we ighted imaging. The postcontrast imaging demonstrates no evidence for an arteriovenous malformation. No focal area of abnormal enhancement is noted within the brain parenchyma. There is a degree of irregular somewhat nodular leptomeningeal enhancement within multiple cortical s ulci within the left frontal lobe superiorly superior to and posterior to the above-described intracranial hemorrhage. No masslike enhancement is seen on this examination. IMPRESSION: Prominent intra-axial hematoma within the left frontal lobe with a fluid/fluid level. Ass ociated small volume subdural blood noted in the left frontal region and bilateral subarachnoid blood noted within the frontal regions near the vertex, left greater than right, as well as in the re gion of the interpeduncular cistern. Leptomeningeal enhancement with slight irregularity/nodularity noted within the left frontal region, significance uncertain. Question vasculitis. Short-term follow-up imaging advised.
[2020-08-29] MEDS: Sodium Chloride 0.9% 1,000 ML IV SCH (22:47)
[2020-08-29] MEDS: Vancomycin 1.5 GRAM/300 ML BAG 1.5 GM in Premix Bag 1 BAG IVPB SCH (23:41)
[2020-08-30] MEDS: Propofol 1,000 MG/100 ML VIAL IV PRN ×3 (00:34→08:59)
[2020-08-30 03:59] LABS: #Lymphocytes 1.8 thou/uL (1.20-3.40); #Monocytes 0.5 thou/uL (0.11-0.59); #Neutrophils 9.4 thou/uL (1.40-6.50); %Eosinophils 0.1 % (0.0-10.0); %Lymphocytes 15.3 % (21.0-51.0); %Monocytes 4.2 % (0.0-10.0); %Neutrophils 80.5 % (42.0-75.0); Hemoglobin 11.4 g/dL (12.0-16.0); Mean Corpuscular HGB CONC 33.4 g/dL (32.0-36.0); Mean Corpuscular Hemoglobin 27.3 pg (27.0-31.0); Mean Corpuscular Volume 81.6 fL (78.0-98.0); Mean Platelet Volume 7.1 fL (7.4-10.4); Platelet Count 344 thou/uL (130-400); RBC Distribution Width 13.2 % (11.5-14.5); Red Blood Cell (RBC) Count 4.19 mill/uL (4.20-5.40); White Blood Cell (WBC) Count 11.7 thou/uL (4.8-10.8)
[2020-08-30] MEDS: Cefepime 2 GM in Sodium Chloride 0.9% 100 ML IVPB SCH ×2 (04:01→15:10)
[2020-08-30] MEDS: Sodium Chloride 0.9% 1,000 ML IV SCH ×4 (04:11→21:22)
[2020-08-30 04:27] LABS: Anion Gap 15 mmol/L (10-20); BUN (Urea Nitrogen) 14 mg/dL (7.0-18.7); Calc. Creatinine Clearance 160 mL/min (70-130); Calcium 7.1 mg/dL (7.8-10.44); Carbon Dioxide 16 mmol/L (22-29); Chloride 110 mmol/L (98-107); Estimated GFR-MDRD Greater than 90; Glucose 112 mg/dL (70-105); Potassium 2.9 mmol/L (3.5-5.1); Sodium 138 mmol/L (136-145)
[2020-08-30] MEDS ORDERED: Potassium Chloride 20 MEQ TAB PO SCH (05:00)
--- NOTE | 2020-08-30 06:55 | PDOC.FM ---
- Subjective Subjective: Pt lying in bed, withdrawing to pain with ABG being drawn. Not responding to commands. opens eyes spontaneous. - Objective MAR Reviewed: Yes Vital Signs & Weight: Vital Signs (12 hours) Temp Pulse Resp BP Pulse Ox 08/30/20 06:00 98.8 F 18 08/30/20 04:00 18 08/30/20 03:59 52 L 128/84 08/30/20 02:00 18 08/30/20 01:48 53 L 131/85 100 08/30/20 00:00 98.6 F 18 08/29/20 22:00 18 08/29/20 21:00 98.7 F 08/29/20 20:03 82 135/90 08/29/20 20:00 18 100 Weight Weight 80.2 kg Most Recent Monitor Data Heart Rate from ECG 50 NIBP 128/84 NIBP BP-Mean 98 Respiration from ECG 18 SpO2 100 I&O: 08/28/20 08/29/20 08/30/20 06:59 06:59 06:59 Intake Total 300 Output Total 1050 Balance -750 Result Diagrams: 08/30/20 03:33 08/30/20 13:58 Phys Exam - Physical Examination intubated and sedated, lying supine. HEENT: moist MMs, sclera anicteric pupils equal and not reactive Respiratory: no wheezing, no rales, no rhonchi, clear to auscultation bilateral Cardiovascular: RRR, no significant murmur, no rub Gastrointestinal: soft, non-tender, no distention, positive bowel sounds Musculoskeletal: no edema, pulses present withdraws to pain, does not follow commands. Skin: no rash, normal turgor Dx/Plan (1) Intraparenchymal hemorrhage of brain Code(s): I61.9 - NONTRAUMATIC INTRACEREBRAL HEMORRHAGE, UNSPECIFIED Status: Acute (2) Hypokalemia Code(s): E87.6 - HYPOKALEMIA Status: Acute (3) Fever Code(s): R50.9 - FEVER, UNSPECIFIED Status: Acute (4) Grand mal seizure Code(s): G40.409 - OTH GENERALIZED EPILEPSY, NOT INTRACTABLE, W/O STAT EPI Status: Acute (5) Leukocytosis Code(s): D72.829 - ELEVATED WHITE BLOOD CELL COUNT, UNSPECIFIED Status: Acute - Plan Plan: # Intra-parenchymal hemorrhage - CT: intra-parenchymal hemorrhage with additional areas of extra-axial hemorrhage with possible venous sinus thrombosis - MRV: Prominent intra-axial hematoma within left frontal lobe with a fluid/fluid level. Associated small volume subdural blood noted in the left frontal region and bilateral subarachnoid blood noted within the frontal regions near the vertex. L>R. As well as in the interpeduncular cistern. Leptomeningeal enhancement with slight irregularities/nodularity noted within the left frontal region, significance uncertain. Questionable vasculitis. - Had grand mal seizure in ER. given 2 mg ativan and - Neurosurgery consulted (08/29), appreciate recommendations * keep sedated * Received one dose of decadron in ER. To be decided today by Dr. Long is to be continued. * loaded with keppra, if continues to seize despite med could consider phenytoin * SBP goal of <140 * non-operative at this time * Echo transthoracic to check for possible ischemic evnet from embolus that lead to hemorrhagic conversion. * No LP recommended at this time - repeat CT pending report from overnight. - will obtain coag panel-pending - Eclampsia labs negative. urine pro/cr ratio negative. - TTE ordered - could consider giving mag if patient continues to seize # Fever of Unknown Origin, likely neurogenic 2/2 to the above - s/p cefepime in the ED - continue vanc and cefepime until ccx results. - leukocytosis with left shift, febrile upon arrival to ED - WBC: 11.3, neutrophils: 78.1% - patient received epidural, so post-instrumental infection is possible - procal 0.03, blood cx, urine cx pending Code Status: Full Diet: NPO IVF: SL DVT PPx: SCDs GI PPx: Protonix Dispo: will admit to ICU, neurosurgery consulted and following. inpt and >48 hr hospital stay anticipated. Addendum - Attending - Attending Attestation Date/Time: 08/30/20 [id number] I personally evaluated the patient and discussed the management with Dr. Ley. I agree with the History, Examination, Assessment and Plan documented above with any addition or exceptions noted below. Patient was still sedated this morning on proprofol during my visit. She has had repeat imaging which appears stable. Vent mgmt per pulmonology. Appreciate neurosurgery recommendations. Echo is ordered. Awaiting cultures. Neurology also consulted.
[2020-08-30] MEDS ORDERED: Magnesium Sulfate 4 GM in Sodium Chloride 0.9% 250 ML 250 ML IVPB SCH (07:45)
--- NOTE | 2020-08-30 07:53 | RAD ---
Chest one view HISTORY: Respiratory failure. Dyspnea. COMPARISON: Earlier exam on the same date. FINDINGS: Cardiac silhouette is magnified by projection. Pulmonary vasculature is unremarkable. Mediastinum is midline allowing for curvature of the thoracic spine. Lines and tubes are unchanged in position. No lobar consolidation or evidence of pneumothorax. IMPRESSION : Stable radiographic appearance of the chest.
[2020-08-30 08:08] LABS: Actual Bicarbonate (HCO3a) 14.7 mEq/L (22-28); Base Excess (BEa) -7.1 mEq/L (-2.0 to +3.0); Calcium, Ionized (arterial) 1.02 mmol/L (1.12-1.30); Carboxyhemoglobin (COHb) 0.5 gm% (0.0-3.0); Hemoglobin (Hb) 13.4 g/dL (12.0-16.0); O2 Tension (PaO2), arterial 149.1 mmHg (80.0-100.0); pH, Arterial 7.45 (7.35-7.45)
--- NOTE | 2020-08-30 08:10 | CT ---
PRELIMINARY REPORT/DIRECT RADIOLOGY/EMERGENCY AFTER HOURS PROCEDURE: EXAM: CT Head Without Intravenous Contrast. CLINICAL HISTORY: F32, Follow up left frontal IPH. TECHNIQUE: Axial computed tomography images of the head/brain without intravenous contrast. COMPARISON: August 29, 2020 FINDINGS: Intraparenchymal hematoma in the left frontal lobe is again noted. It does not appear to h ave changed significantly in size in the interval. Some surrounding vasogenic edema again noted with some small amount of subarachnoid blood also noted. Stable localized mass-effect and some midli ne shift also about the same. No new abnormalities. IMPRESSION: Stable exam. ELECTRONICALLY SIGNED BY: Srinivasa Horta MD Aug 30, 2020 3:56:12 AM IT [employer] CONSULTANT FINAL REPORT BRAIN CT WITHOUT IV CONTRAST: EMERGENCY AFTER HOURS EXAM TIME: 3:46 AM. DATE: 08/30/2020. COMPARISON: 08/29/2020 Persistent intraparenchymal hemorrhage with minimal surrounding edema and some patchy extraaxial hemo rrhage in the left frontal lobe. Stable exam. This report is in agreement with the preliminary report. Transcribed Date/Time: 08/30/2020 8:38 AM
[2020-08-30 08:22] LABS: CO2 Tension 21.7 mmHg (35.0-45.0)
[2020-08-30 08:23] LABS: ALV-art Gradient 108.975 mmHg (0-20); Puncture Site LRA
--- NOTE | 2020-08-30 08:48 | RAD ---
EXAM: Chest one view: HISTORY: Tube placement COMPARISON: 08/29/2020 FINDINGS: The endotracheal tube has been pulled back with the tip above the level of the nathanael. Enteric tube i s stable Heart size: Within normal limits. Lungs: Stable appearing parenchymal changes in the left lower lobe. This is evidence for pneumonia. No evidence for confluent lobar pneumonia, significant pleural effusion, acute edema, or pneumothorax , or other significant acute process. IMPRESSION: Endotracheal tube is been pulled back. Stable appearing left lower lobe pneumonia.
[2020-08-30] MEDS: Pantoprazole 40 MG VIAL IVP SCH (08:59)
[2020-08-30] MEDS: levETIRAcetam 500 mg/5 ml Oral Solution PO SCH ×2 (09:57→21:15)
--- NOTE | 2020-08-30 11:06 | CON ---
DATE OF CONSULTATION: HISTORY OF PRESENT ILLNESS: Michelle Cota is a 30-year-old female who is status post normal vaginal delivery 3 days ago, presented to the ER yesterday at about 1410 hours. Blood pressure 127/80, temperature 101.6, respirations 16, sats 90% on room air, pulse 71, confused. Altered mental status as per the . Somewhere down the line when she was having some imaging studies done she seized. She was intubated thereafter to protect her airways. She is presently in the ICU, intubated in the vent, the reason for consult. Not able to get any additional history at this stage. Her recent discharge summary revealed that the patient otherwise has no major medical problems. PREVIOUS SURGERIES: None. CHRONIC MEDICATIONS: None. HOME MEDICINE: Includes vitamins, ibuprofen. ALLERGIES: NONE. TOBACCO: None. ALCOHOL: None. PHYSICAL EXAMINATION: VITAL SIGNS: Temperature 99.1 this morning, pulse 80, sats on vent 100%, blood pressure 121/77, respirations 18. CHEST: Clear. No wheezing. No crackles. CARDIAC: Normal S1, S2. No gallops. ABDOMEN: Soft, nondistended. LABORATORY DATA: D-dimer was slightly elevated at 2.44. White count 11,000, H and H of 11 and 34. PO2 of 149, pH 7.45, pCO2 of 21. Potassium 2.9. Lytes are normal. IMPRESSION: 1. Metabolic encephalopathy, etiology unclear. 2. Intraparenchymal hematoma left frontal lobe noted. 3. Seizure disorder. 4. . PLAN: She had a repeat serology for coronavirus, she is negative. She is , unclear why she had a spontaneous hemorrhage since she has no evidence of any previous hypertension or risk factors. Pulmonary is going to follow while in the ICU. Decrease sedation. Continue antiseizure medication. Start empiric antibiotics. Would deescalate when cultures come back. Consultation note, 70 minutes, 50% direct patient care. Job ID: [id number]
--- NOTE | 2020-08-30 11:22 | PRG ---
DATE OF SERVICE: 08/30/2020 SUBJECTIVE: The patient was seen and examined. I agree with Ynes Wright's evaluation on 08/29/2020. The patient is a 30-year-old woman with recent uncomplicated and delivery, who presented confused yesterday. Initial CT scan revealed a left frontal intracerebral hemorrhage. She then had a seizure and ultimately required intubation. Currently, the patient is intubated. She is alert with eyes open, tracking the examiner, moving all fours purposefully, although there may be a subtle amount of right arm weakness. She does not definitively follow commands, but does seem to make reasonable efforts to do so, particularly when prompted visually. Extensive imaging has been performed and reviewed. There is a left frontal hemorrhage that has some local mass effect, but no significant global mass effect. CT angiography and MR venography revealed no vascular lesion and specifically no arterial lesions such as aneurysm nor evidence of venous sinus thrombosis. MRI of the brain did not reveal an underlying lesion as an etiology of the hemorrhage nor any evidence of vascular malformation. The radiologist reports some subtle leptomeningeal enhancement over the region of the hemorrhage that I do not think is pathologic and likely secondary to the hemorrhage. IMPRESSION AND PLAN: The patient has had a left frontal hemorrhage of uncertain etiology. The patient does not have any radiographic findings suggestive of cerebral venous thrombosis and I do not recommend anticoagulation. I do recommend echocardiography and carotid ultrasound to exclude source of embolus. I anticipate a repeat MRI scan in six weeks. At this time, no plans for neurosurgical intervention and I will continue to follow along with primary team and Neurology. Job ID: [id number]
[2020-08-30] MEDS: Vancomycin 1.5 GRAM/300 ML BAG 1.5 GM in Premix Bag 1 BAG IVPB SCH ×2 (11:30→23:21)
--- NOTE | 2020-08-30 12:21 | CON ---
DATE OF CONSULTATION: 08/30/2020 CONSULTING PHYSICIAN: Hospitalist Services. IMPRESSION: 1. Left frontoparietal intracerebral hemorrhage. 2. Secondary seizure. PLAN: Continue Keppra 1000 mg twice a day. HISTORY OF PRESENT ILLNESS: Ms. Sharma is a 30-year-old female, who presented to the hospital 2 days ago. She was found to have evidence of a large hemorrhage in the left frontal lobe. Neurosurgery was consulted. Subsequent imaging did not reveal a vascular malformation that could be identified. She apparently had a witnessed seizure while she was down in the CAT scan. She has been started on Keppra. She has not had any further seizure activity. PAST MEDICAL HISTORY: Otherwise, negative. ALLERGIES: NONE REPORTED. SOCIAL HISTORY: Unremarkable. FAMILY HISTORY: As per chart is unremarkable. REVIEW OF SYSTEMS: Ten system review of systems is not obtainable due to her intubation. PHYSICAL EXAMINATION: GENERAL: She is a well-nourished young woman, is intubated at this point. VITAL SIGNS: Blood pressure 123/76, pulse 62, and a sinus rhythm, saturations 100%, and respirations 17. HEENT: Pupils are equal and reactive. Conjunctivae are clear. Cranium, normocephalic and atraumatic. NECK: No lymphadenopathy. ABDOMEN: Soft and nontender. EXTREMITIES: No cyanosis or edema. SKIN: Clear. NEUROLOGIC: She is alert and cooperative. She follow commands appropriately. Speech could not be assessed at this point. There is no obvious facial asymmetry. She had relatively good movement on the right side. It is difficult to appreciate any asymmetry at this point. Sensation was grossly intact. No abnormal movements were seen. SUMMARY: This is a young woman with spontaneous intracerebral hemorrhage. More than likely, there is an underlying vascular malformation that cannot be identified at this point. Neurosurgery is making assessments and it does not look that there is any need for surgery at this point. I agree with Keppra for her seizure activity. I would be happy to follow up with her if there are any further problems. Job ID: [id number]
--- NOTE | 2020-08-30 12:42 | ULT ---
Carotid duplex sonogram HISTORY: Vascular disease. TIA. FINDINGS: Right: No significant plaque evident. Color and spectral Doppler evaluation, peak systolic velocity o f 48 cm/s, and IC to CC ratio of 0.5 suggest no hemodynamically significant stenosis within the extracranial right ICA. Antegrade flow within the vertebral artery. Left: Color and spectral Doppler evaluation, peak systolic velocity of 60 cm/s, and IC to CC ratio 0. 6 suggest no hemodynamically significant stenosis within the extracranial left ICA. Antegrade flow within the vertebral artery. IMPRESSION : No abnormalities are demonstrated.
[2020-08-30 14:20] LABS: Potassium 3.5 mmol/L (3.5-5.1)
[2020-08-30] MEDS ORDERED: Electrolyte Replacement Protocol FS PRN (15:15)
[2020-08-30] MEDS ORDERED: Potassium Chloride 40 MEQ in Sodium Chloride 0.9% 250 ML 250 ML IVPB SCH (15:30)
[2020-08-30] MEDS ORDERED: levETIRAcetam in NS 1,000 MG in Premix Bag 1 BAG IVPB SCH (21:15)
[2020-08-30] MEDS ORDERED: Acetaminophen 650 MG Suppository PR PRN (22:19)
[2020-08-30 22:43] LABS: Potassium 4.2 mmol/L (3.5-5.1)
[2020-08-31] MEDS: Cefepime 2 GM in Sodium Chloride 0.9% 100 ML IVPB SCH ×2 (02:24→15:42)
[2020-08-31 04:48] LABS: #Lymphocytes 2.7 thou/uL (1.20-3.40); #Monocytes 0.8 thou/uL (0.11-0.59); %Basophils 0.3 % (0.0-1.0); %Eosinophils 0.4 % (0.0-10.0); %Lymphocytes 25.2 % (21.0-51.0); %Monocytes 7.2 % (0.0-10.0); %Neutrophils 66.9 % (42.0-75.0); Hemoglobin 11.2 g/dL (12.0-16.0); Mean Corpuscular HGB CONC 32.7 g/dL (32.0-36.0); Mean Corpuscular Hemoglobin 27.1 pg (27.0-31.0); Mean Corpuscular Volume 82.7 fL (78.0-98.0); Mean Platelet Volume 6.9 fL (7.4-10.4); Platelet Count 312 thou/uL (130-400); RBC Distribution Width 13.4 % (11.5-14.5); Red Blood Cell (RBC) Count 4.13 mill/uL (4.20-5.40); White Blood Cell (WBC) Count 10.5 thou/uL (4.8-10.8)
[2020-08-31 05:10] LABS: Anion Gap 13 mmol/L (10-20); BUN (Urea Nitrogen) 12 mg/dL (7.0-18.7); Calc. Creatinine Clearance 162 mL/min (70-130); Carbon Dioxide 12 mmol/L (22-29); Chloride 116 mmol/L (98-107); Estimated GFR-MDRD Greater than 90; Glucose 76 mg/dL (70-105); Potassium 3.9 mmol/L (3.5-5.1); Sodium 137 mmol/L (136-145)
[2020-08-31] MEDS: Sodium Chloride 0.9% 1,000 ML IV SCH ×2 (06:13→15:41)
--- NOTE | 2020-08-31 08:01 | PDOC.FM ---
- Subjective Subjective: Pt awakens upon my entry to room speaks to me but is confused on where she is. Denies any pain. extubated 08/30 no acute overnight events transferred to stroke floor from CCU - Objective MAR Reviewed: Yes Vital Signs & Weight: Vital Signs (12 hours) Temp Pulse Resp BP Pulse Ox 08/31/20 07:40 100.5 F H 66 16 132/82 96 08/31/20 03:22 100.4 F H 68 20 105/75 97 08/31/20 00:00 100.8 F H 68 20 118/77 94 L 08/30/20 20:45 97 08/30/20 20:44 100.6 F H 68 22 H 135/89 97 08/30/20 20:00 101.7 F H 98 Weight Admit Weight 80.2 kg Weight 81.238 kg Most Recent Monitor Data Heart Rate from ECG 70 NIBP 125/80 NIBP BP-Mean 95 Respiration from ECG 24 SpO2 98 I&O: 08/30/20 08/31/20 09/01/20 06:59 06:59 06:59 Intake Total 1220 3881.3 Output Total 1050 3592 Balance 170 289.3 Result Diagrams: 08/31/20 04:24 08/31/20 04:24 Phys Exam - Physical Examination awakens to touch, oriented to person. disoriented to time and place. HEENT: PERRLA dry MM Neck: no JVD Respiratory: no wheezing, no rales, no rhonchi, clear to auscultation bilateral Cardiovascular: RRR, no significant murmur, no rub Gastrointestinal: soft, non-tender, no distention, positive bowel sounds Musculoskeletal: no edema, pulses present negative zachariah sign Neurological: non-focal, normal sensation, moves all 4 limbs CN 2-12 grossly intact, PERRL, neg pronator drift. slowed speech. Deviation from normal: alert when awakened, oriented to person, disoriented to time and place. Skin: no rash, normal turgor Dx/Plan (1) Intraparenchymal hemorrhage of brain Code(s): I61.9 - NONTRAUMATIC INTRACEREBRAL HEMORRHAGE, UNSPECIFIED Status: Acute (2) Hypokalemia Code(s): E87.6 - HYPOKALEMIA Status: Acute (3) Fever Code(s): R50.9 - FEVER, UNSPECIFIED Status: Acute (4) Grand mal seizure Code(s): G40.409 - OTH GENERALIZED EPILEPSY, NOT INTRACTABLE, W/O STAT EPI Status: Acute (5) Leukocytosis Code(s): D72.829 - ELEVATED WHITE BLOOD CELL COUNT, UNSPECIFIED Status: Acute - Plan Plan: # Intra-parenchymal hemorrhage, likely spontaneous - CT: intra-parenchymal hemorrhage with additional areas of extra-axial hemorrhage with possible venous sinus thrombosis - MRV: Prominent intra-axial hematoma within left frontal lobe with a fluid/fluid level. Associated small volume subdural blood noted in the left frontal region and bilateral subarachnoid blood noted within the frontal regions near the vertex. L>R. As well as in the interpeduncular cistern. Leptomeningeal enhancement with slight irregularities/nodularity noted within the left frontal region, significance uncertain. Questionable vasculitis. - Had grand mal seizure in ER. given 2 mg ativan and intubated - Neurosurgery consulted (08/29), appreciate recommendations * Received one dose of decadron in ER. * loaded with keppra, * SBP goal of <140 * non-operative at this time * Echo transthoracic to check for possible ischemic event from embolus that lead to hemorrhagic conversion: EF 55-60%, critical access hospital echo. * carotid sonos: nml * No LP recommended at this time - Neurology consult: * continue keppra - Pt extubated on 08/30, awake and oriented to person. She does not know where she is or what year it is. She remembers recently having a baby and having to come to the hospital. nml neuro exam 08/11. - coag panel-pending - Eclampsia labs negative. urine pro/cr ratio negative. - PT/OT consulted - Speech consulted for swallow safety. - ordered TSH, FLP and A1C. # Fever of Unknown Origin, likely neurogenic 2/2 to the above - s/p cefepime in the ED - continue vanc and cefepime until ccx results. No growth to date. - leukocytosis with left shift, febrile upon arrival to ED - WBC: 11.3-> 10.5, neutrophils: 78.1% - patient received epidural, so post-instrumental infection is possible - procal 0.03, blood cx, urine cx pending Code Status: Full Diet: NPO, speech consulted today DVT PPx: SCDs GI PPx: Protonix PCP Dr. Aguilar, sending updates. Dispo: stroke inpt, neurology and neurosurgery consulted and following. inpt and >48 hr hospital stay anticipated. Addendum - Attending - Attending Attestation Date/Time: 08/31/20 3023 I personally evaluated the patient and discussed the management with Dr. Ley. I agree with the History, Examination, Assessment and Plan documented above with any addition or exceptions noted below. The patient is able to answer questions this morning but is slightly confused upon waking. Will consult Pt/ot and will get speech to evaluate swallowing. Urine and blood cultures negative to date. She did have a fever this morning but there are no obvious sources of infection. Appreciate neurosurgery recs. Continue IV antibiotics.
[2020-08-31 08:29] LABS: Hemoglobin A1c 5.3 % (4.0-6.0)
[2020-08-31 08:32] LABS: Cardiac Risk 5.5 (Less than 4.5)
[2020-08-31] MEDS: levETIRAcetam in NS 1,000 MG in Premix Bag 1 BAG IVPB SCH ×2 (08:50→21:28)
[2020-08-31] MEDS: Pantoprazole 40 MG VIAL IVP SCH (08:50)
--- NOTE | 2020-08-31 08:59 | RAD ---
Chest one view HISTORY: Dyspnea. Follow-up. COMPARISON: 08/30/2020. FINDINGS: Cardiac silhouette is magnified and enlarged. Pulmonary vasculature are unremarkable. Mediastinum is midline allowing for rightward convex curvature of the thoracic spine. Endotracheal ca theter and nasogastric tube no longer visible. Linear atelectasis at the left base is unchanged. No evidence of pneumothorax. IMPRESSION : Interval removal of the endotracheal catheter and nasogastric tube. Left basilar atelectasis and other findings are otherwise stable.
[2020-08-31] MEDS: Acetaminophen 325 MG TAB PO PRN (09:08)
--- NOTE | 2020-08-31 10:06 | PRG ---
DATE OF SERVICE: 08/31/2020 SUBJECTIVE: The patient is now 2 days out from her acute left frontal intraparenchymal hemorrhage. She was extubated yesterday and has been transitioned to the stroke floor. So far, there has been no identifiable vascular lesion or other obvious etiology of her hemorrhage. Her echo and carotid ultrasounds were within normal limits. She has continued to run a fever on the floor, up to 101.7 last night of unclear etiology. Thus far, her urine and chest x-rays are negative for source. Blood cultures have not grown anything over the last 48 hours. A transvaginal ultrasound was done on her initial arrival, which was negative for retained products of conception. She is currently being treated empirically with vancomycin and cefepime. Her white count is 10.5 today without a shift. Her COVID screen was negative. OBJECTIVE: On exam this morning, the patient is a bit drowsy, but will awaken easily to voice. She is able to tell me her name and her birthday and that she is in the hospital. She also was able to tell me that she recently had a baby. She is moving all 4s without any difficulty. Although somewhat generally weak, and possibly some subtle RUE weakness. ASSESSMENT AND PLAN: The patient is improving with regard to her left frontal intraparenchymal hemorrhage of unclear etiology. She will need PT, OT, and likely inpatient rehabilitation at some point. With regard to her fever, the source is unclear. I feel that it is less likely promotional representative of her intracranial injury. She did have an epidural during her spontaneous vaginal delivery, but there were no signs of diffuse meningeal enhancement on her MRI. Additionally, her white count remains normal. We will recommend that we continue to treat her empirically. She cannot have LP due to her recent intracranial event. We will continue to follow along closely with the medical team. Job ID: [id number] MTDD
[2020-08-31 11:32] LABS: Vancomycin, Trough 9.6 ug/mL
[2020-08-31] MEDS: Vancomycin 1.5 GRAM/300 ML BAG 1.5 GM in Premix Bag 1 BAG IVPB SCH (11:55)
[2020-08-31] MEDS: Vancomycin HCl 1.25 GM in Sodium Chloride 0.9% 250 ML 250 ML IVPB SCH ×2 (12:07→21:28)
--- NOTE | 2020-08-31 13:38 | PRG ---
DATE OF SERVICE: 08/31/2020 SUBJECTIVE: Michelle Cota was transferred out of the ICU. She is doing well status post acute left frontal parenchymal hemorrhage. She is extubated, appears to be in no distress. OBJECTIVE: GENERAL: She is doing better. No shortness of breath. Moving all 4 extremities. VITAL SIGNS: Temperature room air, blood pressure 115/78. CHEST: No wheezing. No crackles. CARDIAC: Normal S1, S2. No gallops. ABDOMEN: No masses. LABORATORY DATA: Unremarkable. X-ray was done today, which shows left basilar atelectatic changes, but otherwise unremarkable. IMPRESSION: Post-delivery; left frontal hemorrhage, etiology unclear; low-grade fever. PLAN: Continue aggressive PT, supportive care. Agree with antibiotics. Once able to swallow, switch over to p.o. Pulmonary is going to follow at a distance. Please call if needed. Job ID: [id number]
[2020-09-01] MEDS: Sodium Chloride 0.9% 1,000 ML IV SCH ×2 (01:09→08:34)
[2020-09-01] MEDS: Cefepime 2 GM in Sodium Chloride 0.9% 100 ML IVPB SCH (03:24)
[2020-09-01] MEDS: Vancomycin HCl 1.25 GM in Sodium Chloride 0.9% 250 ML 250 ML IVPB SCH (03:38)
[2020-09-01 04:49] LABS: #Basophils 0.1 thou/uL (0.0-0.2); #Eosinphils 0.1 thou/uL (0.0-0.7); #Lymphocytes 2.6 thou/uL (1.20-3.40); #Monocytes 0.7 thou/uL (0.11-0.59); #Neutrophils 4.9 thou/uL (1.40-6.50); %Basophils 0.7 % (0.0-1.0); %Eosinophils 1.3 % (0.0-10.0); %Lymphocytes 31.3 % (21.0-51.0); %Neutrophils 58.7 % (42.0-75.0); Hemoglobin 11.7 g/dL (12.0-16.0); Mean Corpuscular Hemoglobin 27.4 pg (27.0-31.0); Mean Corpuscular Volume 83.1 fL (78.0-98.0); Mean Platelet Volume 8.6 fL (7.4-10.4); Platelet Count 336 thou/uL (130-400); RBC Distribution Width 13.5 % (11.5-14.5); Red Blood Cell (RBC) Count 4.28 mill/uL (4.20-5.40); White Blood Cell (WBC) Count 8.3 thou/uL (4.8-10.8)
[2020-09-01 05:14] LABS: Anion Gap 13 mmol/L (10-20); BUN (Urea Nitrogen) 10 mg/dL (7.0-18.7); Calc. Creatinine Clearance 173 mL/min (70-130); Calcium 7.3 mg/dL (7.8-10.44); Carbon Dioxide 15 mmol/L (22-29); Chloride 120 mmol/L (98-107); Estimated GFR-MDRD Greater than 90; Glucose 78 mg/dL (70-105); Sodium 144 mmol/L (136-145)
--- NOTE | 2020-09-01 07:04 | PDOC.FM ---
- Subjective Subjective: Pt doing well this morning. A&O x3, big improvement in mentation. Tolerating diet, working with PT/OT. Has not had bowel movement. - Objective Vital Signs & Weight: Vital Signs (12 hours) Temp Pulse Resp BP Pulse Ox 09/01/20 05:35 97 09/01/20 03:58 98.8 F 55 L 16 120/80 97 09/01/20 00:00 99.1 F 53 L 16 118/75 98 08/31/20 20:00 99.7 F H 53 L 16 139/90 98 Weight Admit Weight 80.2 kg Weight 78.925 kg Most Recent Monitor Data Heart Rate from ECG 70 NIBP 125/80 NIBP BP-Mean 95 Respiration from ECG 24 SpO2 98 I&O: 08/31/20 09/01/20 09/02/20 06:59 06:59 06:59 Intake Total 3881.3 4007 Output Total 3592 5250 Balance 289.3 -1243 Result Diagrams: 09/01/20 04:36 09/01/20 04:36 Phys Exam - Physical Examination Constitutional: NAD Neck: supple, full ROM Respiratory: no wheezing, clear to auscultation bilateral Cardiovascular: RRR, no significant murmur Gastrointestinal: soft, non-tender, no distention Musculoskeletal: no edema Neurological: normal sensation, moves all 4 limbs Psychiatric: A&O x 3 Dx/Plan - Plan Plan: Intra-parenchymal hemorrhage, likely spontaneous - CT: intra-parenchymal hemorrhage, with possible venous sinus thrombosis - MRI: Prominent intra-axial hematoma within left frontal lobe with a fluid/fluid level. Associated small volume subdural blood noted in the left frontal region and bilateral subarachnoid blood noted within the frontal regions near the vertex. L>R. As well as in the interpeduncular cistern. Leptomeningeal enhancement with slight irregularities/nodularity noted within the left frontal region, significance uncertain. Questionable vasculitis. - Had grand mal seizure in ED, Intubated, Extubated on 08/30 - Neurosurgery consulted: SBP goal of <140, will need f/u MRI in 6 weeks - Neuro consulted: continue keppra 1000mg bid - Echo: EF 55-60%, carotid US: nml - coag panel-pending - Eclampsia labs negative. urine pro/cr ratio negative. - PT/OT consulted - Speech consulted: chopped/extra gravy # Fever of Unknown Origin, likely neurogenic 2/2 to the above - resolved - BCx/UCx: no growth - Abx: stop vanc and cefepime, start clindamycin 900mg IV q8h - WBC: 11.3-> 10.5 --> 8 - patient received epidural, so post-instrumental infection is possible - procal 0.03 Code Status: Full Diet: chopped, extra gravy DVT PPx: SCDs GI PPx: Protonix PCP Dr. Aguilar, sending updates. Dispo: stroke inpt, neurology and neurosurgery consulted and following. Addendum - Attending - Attending Attestation Date/Time: 09/01/201920 I personally evaluated the patient and discussed the management with Dr. Rodriguez. I agree with the History, Examination, Assessment and Plan documented above with any addition or exceptions noted below. Patient was able to walk in the halls this morning. She is improving. Will adjust antibiotics today.
--- NOTE | 2020-09-01 08:07 | PRG ---
DATE OF SERVICE: 09/01/2020 SUBJECTIVE: I visited the patient on the stroke unit this morning. She has not had any overnight events. Her neurologic status continues to improve and her NIH scale most recently was 1. Her temperature seems to be trending down and she has normal white count, 8.3 this morning. OBJECTIVE: On exam, she is A and O x3. She is moving all 4s without difficulty. No gross focal deficits are appreciated on my exam. ASSESSMENT AND PLAN: The patient has made significant progress. We will continue to have her work with PT, OT with possible need for inpatient rehabilitation at some point. We will continue to follow along closely. Job ID: [id number]
[2020-09-01] MEDS: Pantoprazole 40 MG VIAL IVP SCH (08:35)
--- NOTE | 2020-09-01 08:48 | CON ---
DATE OF CONSULTATION: 09/01/2020 SUBJECTIVE: Ms. Zachary Cota is alert and interactive. She was nonfocal in her extremities. Echocardiography and carotid ultrasound are negative for source of embolus. IMPRESSION AND PLAN: 1. Left frontal hematoma of unclear etiology. We will plan a followup MRI in 6 weeks and no further imaging is required in this regard. She can be mobilized for dismissal at the discretion of the primary service. No further intervention is planned. 2. Fever of unknown origin. Defer to primary service in this regard. 3. Discussed with the patient and her . Job ID: [id number]
[2020-09-01] MEDS ORDERED: NIFEdipine XL 30 MG TAB PO SCH (09:30)
[2020-09-01] MEDS: levETIRAcetam in NS 1,000 MG in Premix Bag 1 BAG IVPB SCH ×2 (10:09→22:12)
[2020-09-01] MEDS: Clindamycin/D5W 900 MG in Premix Bag 1 BAG IVPB SCH ×2 (10:19→17:51)
--- NOTE | 2020-09-01 10:46 | CT ---
CT angiogram of the head and neck: 08/29/2020 COMPARISON: Head CT 08/29/2020 3:43 PM History: Headache, intracranial hemorrhage, recent delivery TECHNIQUE: Axial CT imaging at 5 mm intervals from vertex through skull base without contrast. Then, axial CT imaging obtained at 1.25 mm intervals from the lung apices through the vertex with IV contrast using CT angiogram protocol. Coronal and sagittal 3-D reformatted imaging obtained. FINDINGS: The noncontrast enhanced head CT demonstrates an intra-axial hematoma in the left frontal r egion measuring 4.4 cm in AP dimension, slightly enlarged when compared to the prior exam at which time it measured 3.9 cm in AP dimension. There is significant surrounding vasogenic edema with mild m ass effect on the frontal horn of the left lateral ventricle. There is mild left to right midline shift involving the anterior aspect of the interhemispheric fissure measuring approximately 5 mm, sim ilar when compared to prior imaging. Small volume adjacent midline subdural blood and anterior left frontal subarachnoid blood suspected. The imaged lung apices demonstrate nonspecific mild patchy areas of increased linear density bilatera lly. There is an Endo tracheal tube and enteric tube in place, incompletely imaged on this examination. The retroantral fat and parapharyngeal fat appears clear bilaterally. The parotid glands and submandi bular glands appear grossly unremarkable. The tonsillar pillars, epiglottis and preepiglottic fat, hyoid bone, thyroid cartilage, cricoid cartilage, and level of the glottis appear grossly unremarkabl e, not optimally assessed secondary to presence of endotracheal tube and nasogastric tube. The origin of the innominate artery, right subclavian artery, right common carotid artery, left commo n carotid artery, left subclavian artery, and bilateral vertebral arteries appears grossly unremarkable. On the basis of NASCET criteria there is no hemodynamically significant stenosis involving the arteri al structures of the neck. The vertebral arteries appear patent bilaterally. The vertebral artery on the left is dominant. The M1 segment, the MCA bifurcation, the A1 segment, the distal DAWSON branches, and the distal MCA bran ches appear grossly unremarkable. The superior sagittal sinus, the torcula, the transverse sinuses, the sigmoid sinuses, and the internet marketing strategist al jugular veins appear unremarkable. The straight sinus and the vein of Willie appear patent as well. No evidence for an arteriovenous malformation is seen in the left frontal region. No discrete cortica l vein thrombosis is seen although focal areas of cortical venous thrombosis may be difficult to visualize on CT angiography. There is no saccular aneurysm, high-grade stenosis, or vascular occlusion seen involving the anterior or the posterior circulation. There is a patent posterior communicating artery on the right. The osseous structures demonstrate no acute findings. IMPRESSION: Intra-axial hematoma in the left frontal lobe with adjacent extra-axial blood as detailed above. Surrounding vasogenic edema and evidence of mass effect. Please see above discussion. No acute arterial abnormality. No CT angiographic evidence for dural venous thrombosis. Cortical venous thrombosis is difficult to exclude via CT angiography. Transcribed Date/Time: 09/01/2020 10:46 AM
[2020-09-01] MEDS ORDERED: Sodium Chloride 0.9% 1,000 ML IV SCH (12:03)
[2020-09-01] MEDS: Acetaminophen 325 MG TAB PO PRN (14:37)
[2020-09-02] MEDS: Clindamycin/D5W 900 MG in Premix Bag 1 BAG IVPB SCH ×3 (02:09→17:43)
[2020-09-02 04:49] VITALS: BMI 31.5
[2020-09-02 05:09] LABS: #Eosinphils 0.2 thou/uL (0.0-0.7); #Lymphocytes 2.1 thou/uL (1.20-3.40); #Monocytes 0.6 thou/uL (0.11-0.59); #Neutrophils 4.9 thou/uL (1.40-6.50); %Basophils 0.6 % (0.0-1.0); %Eosinophils 2.7 % (0.0-10.0); %Lymphocytes 26.8 % (21.0-51.0); %Monocytes 7.9 % (0.0-10.0); %Neutrophils 62.1 % (42.0-75.0); Hemoglobin 12.5 g/dL (12.0-16.0); Mean Corpuscular HGB CONC 32.6 g/dL (32.0-36.0); Mean Corpuscular Hemoglobin 26.9 pg (27.0-31.0); Mean Corpuscular Volume 82.5 fL (78.0-98.0); Mean Platelet Volume 8.5 fL (7.4-10.4); Platelet Count 344 thou/uL (130-400); RBC Distribution Width 13.6 % (11.5-14.5); Red Blood Cell (RBC) Count 4.66 mill/uL (4.20-5.40); White Blood Cell (WBC) Count 7.9 thou/uL (4.8-10.8)
[2020-09-02 05:29] LABS: Anion Gap 14 mmol/L (10-20); BUN (Urea Nitrogen) 10 mg/dL (7.0-18.7); Calc. Creatinine Clearance 158 mL/min (70-130); Calcium 7.7 mg/dL (7.8-10.44); Carbon Dioxide 16 mmol/L (22-29); Chloride 116 mmol/L (98-107); Estimated GFR-MDRD Greater than 90; Glucose 73 mg/dL (70-105); Potassium 3.6 mmol/L (3.5-5.1); Sodium 142 mmol/L (136-145)
--- NOTE | 2020-09-02 06:12 | PDOC.FM ---
- Subjective Subjective: Pt doing very well this morning. Improvement in mentation and overall function. Tolerating diet, voiding well, had b.m. yesterday. Was able to walk with PT yesterday. - Objective Vital Signs & Weight: Vital Signs (12 hours) Temp Pulse Resp BP Pulse Ox 09/02/20 04:26 98.6 F 49 L 14 103/76 97 09/01/20 23:55 98.1 F 54 L 18 121/84 96 09/01/20 22:04 98.2 F 50 L 18 137/91 H 97 Weight Admit Weight 80.2 kg Weight 78.199 kg Most Recent Monitor Data Heart Rate from ECG 70 NIBP 125/80 NIBP BP-Mean 95 Respiration from ECG 24 SpO2 98 I&O: 08/31/20 09/01/20 09/02/20 06:59 06:59 06:59 Intake Total 3881.3 4007 2567 Output Total 3592 5250 3450 Balance 289.3 -1243 -883 Result Diagrams: 09/02/20 04:47 09/02/20 04:47 Phys Exam - Physical Examination Constitutional: NAD Neck: supple, full ROM Respiratory: no wheezing, clear to auscultation bilateral Cardiovascular: RRR, no significant murmur Gastrointestinal: soft, non-tender, no distention Musculoskeletal: no edema Neurological: non-focal, moves all 4 limbs Psychiatric: A&O x 3 Dx/Plan (1) Fever Code(s): R50.9 - FEVER, UNSPECIFIED Status: Acute (2) Grand mal seizure Code(s): G40.409 - OTH GENERALIZED EPILEPSY, NOT INTRACTABLE, W/O STAT EPI Status: Acute (3) Intraparenchymal hemorrhage of brain Code(s): I61.9 - NONTRAUMATIC INTRACEREBRAL HEMORRHAGE, UNSPECIFIED Status: Acute - Plan Plan: Intra-parenchymal hemorrhage, likely spontaneous - CT and MRI brain: showed intra-parenchymal hemorrhage - grand mal seizure in ED - Neurosurgery consulted: stable, signed off, will need f/u MRI in 6 weeks - Neuro consulted: continue keppra 1000mg bid - coag panel-pending - PT/OT consulted: pt walking in halls yesterday - Speech consulted: will wait for eval today to decide when safe to switch to po meds # Fever of Unknown Origin, likely neurogenic 2/2 to the above - resolved - BCx/UCx: no growth - Abx: clindamycin 900mg IV q8h - WBC: 11.3-> 10.5 --> 8 - patient received epidural, so post-instrumental infection is possible - procal 0.03 Code Status: Full Diet: chopped, extra gravy DVT PPx: SCDs GI PPx: Protonix PCP Dr. Aguilar, sending updates. Dispo: stroke inpt, pending speech, PT/OT and CM recs for discharge planning. Addendum - Attending - Attending Attestation Date/Time: 09/02/201922 I personally evaluated the patient and discussed the management with Dr. Rodriguez. I agree with the History, Examination, Assessment and Plan documented above with any addition or exceptions noted below. Patient is doing well. Would recommend inpt rehab but pt declines. Trying to arrange home health with pt/ot. BP has been controlled.
[2020-09-02] MEDS: Pantoprazole 40 MG VIAL IVP SCH (08:56)
[2020-09-02] MEDS: levETIRAcetam in NS 1,000 MG in Premix Bag 1 BAG IVPB SCH (08:56)
[2020-09-02] MEDS: Acetaminophen 325 MG TAB PO PRN (13:47)
[2020-09-02] MEDS ORDERED: Polyethylene Glycol 3350 17 GM Packet PO SCH (15:00)
[2020-09-02] MEDS: levETIRAcetam 500 MG TAB PO SCH (21:21)
[2020-09-03] MEDS: Clindamycin/D5W 900 MG in Premix Bag 1 BAG IVPB SCH (03:10)
[2020-09-03 05:52] LABS: #Basophils 0.1 thou/uL (0.0-0.2); #Eosinphils 0.2 thou/uL (0.0-0.7); #Lymphocytes 2.4 thou/uL (1.20-3.40); #Monocytes 0.5 thou/uL (0.11-0.59); #Neutrophils 3.9 thou/uL (1.40-6.50); %Basophils 1.4 % (0.0-1.0); %Eosinophils 3.5 % (0.0-10.0); %Lymphocytes 33.3 % (21.0-51.0); %Monocytes 6.5 % (0.0-10.0); %Neutrophils 55.3 % (42.0-75.0); Hemoglobin 12.6 g/dL (12.0-16.0); Mean Corpuscular HGB CONC 32.7 g/dL (32.0-36.0); Mean Corpuscular Hemoglobin 27.2 pg (27.0-31.0); Mean Corpuscular Volume 83.1 fL (78.0-98.0); Mean Platelet Volume 7.5 fL (7.4-10.4); Platelet Count 339 thou/uL (130-400); RBC Distribution Width 13.7 % (11.5-14.5); Red Blood Cell (RBC) Count 4.64 mill/uL (4.20-5.40); White Blood Cell (WBC) Count 7.1 thou/uL (4.8-10.8)
--- NOTE | 2020-09-03 05:56 | PDOC.FM ---
- Subjective Subjective: Pt resting comfortably this morning. Has no complaints. Tolerating diet and po meds. Walking with PT. - Objective Vital Signs & Weight: Vital Signs (12 hours) Temp Pulse Resp BP Pulse Ox 09/03/20 04:00 98.0 F 54 L 16 128/89 97 09/03/20 00:00 98.2 F 50 L 16 121/84 98 09/02/20 20:00 98.4 F 54 L 18 127/89 97 Weight Admit Weight 80.2 kg Weight 78.199 kg Most Recent Monitor Data Heart Rate from ECG 70 NIBP 125/80 NIBP BP-Mean 95 Respiration from ECG 24 SpO2 98 I&O: 09/01/20 09/02/20 09/03/20 06:59 06:59 06:59 Intake Total 4007 2567 Output Total 5250 3450 Balance -1243 -543 Result Diagrams: 09/03/20 05:11 09/03/20 05:11 Phys Exam - Physical Examination Constitutional: NAD Neck: supple, full ROM Respiratory: no wheezing, clear to auscultation bilateral Cardiovascular: RRR, no significant murmur Gastrointestinal: soft, non-tender, no distention Musculoskeletal: no edema Neurological: non-focal Psychiatric: A&O x 3 Dx/Plan (1) Fever Code(s): R50.9 - FEVER, UNSPECIFIED Status: Acute (2) Grand mal seizure Code(s): G40.409 - OTH GENERALIZED EPILEPSY, NOT INTRACTABLE, W/O STAT EPI Status: Acute (3) Intraparenchymal hemorrhage of brain Code(s): I61.9 - NONTRAUMATIC INTRACEREBRAL HEMORRHAGE, UNSPECIFIED Status: Acute - Plan Plan: Intra-parenchymal hemorrhage, likely spontaneous - CT and MRI brain: showed intra-parenchymal hemorrhage - grand mal seizure in ED - Neurosurgery consulted: stable, signed off, will need f/u MRI in 6 weeks - Neuro consulted: continue keppra 1000mg bid - coag panel-pending - PT/OT consulted: recommend HH and rolling walker - Speech consulted: continue current diet, safe to take po meds - pt will likely discharge soon and will go home with HH services, will need continued PT/OT and rolling walker for safe ambulation # Fever of Unknown Origin, likely neurogenic 2/2 to the above - resolved - BCx/UCx: no growth, procal 0.03 - Abx: clindamycin 900mg IV q8h, will switch to po before discharge - WBC: WNL - patient received epidural, so post-instrumental infection is possible Code Status: Full Diet: chopped, extra gravy DVT PPx: SCDs GI PPx: Protonix PCP Dr. Aguilar, sending updates. Dispo: stroke inpt, likely to discharge soon, pending approval. Addendum - Attending - Attending Attestation Date/Time: 09/03/20 4575 I personally evaluated the patient and discussed the management with Dr. Rodriguez. I agree with the History, Examination, Assessment and Plan documented above with any addition or exceptions noted below. Patient continues to improve. Has had several systolics in teresa 140's. Will give low dose nifedipime and d/c home with home health for therapy.
[2020-09-03 06:17] LABS: Anion Gap 13 mmol/L (10-20); BUN (Urea Nitrogen) 9 mg/dL (7.0-18.7); Calc. Creatinine Clearance 166 mL/min (70-130); Calcium 7.8 mg/dL (7.8-10.44); Carbon Dioxide 21 mmol/L (22-29); Chloride 112 mmol/L (98-107); Estimated GFR-MDRD Greater than 90; Glucose 79 mg/dL (70-105); Potassium 3.4 mmol/L (3.5-5.1); Sodium 143 mmol/L (136-145)
[2020-09-03 07:56] VITALS: TEMP 98.2
[2020-09-03] MEDS ORDERED: Potassium Chloride 20 MEQ TAB PO SCH (08:15)
[2020-09-03] MEDS ORDERED: Polyethylene Glycol 3350 17 GM Packet PO SCH (09:00)
[2020-09-03] MEDS ORDERED: NIFEdipine XL 30 MG TAB PO SCH (09:30)
[2020-09-03] MEDS ORDERED: Clindamycin 150 MG CAP PO SCH (10:00)
[2020-09-03 10:26] VITALS: BP 104/82
[2020-09-03] MEDS: levETIRAcetam 500 MG TAB PO SCH (10:26)
[2020-09-03 12:37] LABS: Protein C Activity 94 % (78-152)
[2020-09-03 12:39] LABS: Factor VIII Test 254.7 % ACTIVE (56-157)
--- NOTE | 2020-09-03 13:01 | PDOC.NEUPN ---
- Subjective Encounter Date: 09/03/20 Subjective: Patient is alert and oriented to person place and time. She denies any new complaint in the last 24 hours. No further seizure activity on Keppra monotherapy. - Objective Vital Signs & Weight: Vital Signs (12 hours) Temp Pulse Resp BP BP Pulse Ox 09/03/20 10:26 81 104/82 09/03/20 08:30 97 09/03/20 07:39 98.2 F 52 L 15 142/95 H 97 09/03/20 04:00 98.0 F 54 L 16 128/89 97 Weight Admit Weight 176 lb 12.972 oz Weight 171 lb 1.6 oz Most Recent Monitor Data Heart Rate from ECG 70 NIBP 125/80 NIBP BP-Mean 95 Respiration from ECG 24 SpO2 98 I&O: 09/02/20 09/03/20 09/04/20 06:59 06:59 06:59 Intake Total 2567 Output Total 3450 Balance -883 Result Diagrams: 09/03/20 05:11 09/03/20 05:11 Radiology Reviewed by me: Yes EKG Reviewed by me: Yes ROS - Review of Systems Constitutional: reports: fever Eyes: denies: pain, vision change, conjunctivae inflammation, eyelid infla mmation, redness, other ENT: denies: ear pain, ear discharge, nose pain, nose discharge, nose congestion, mouth pain, mouth swelling, throat pain, throat swelling, other Respiratory: denies: cough, dry, shortness of breath, hemoptysis, SOB with excer tion, pleuritic pain, sputum, wheezing, other Genitourinary: denies: dysuria, frequency, incontinence, hematuria, retention, other Musculoskeletal: denies: neck pain, shoulder pain, arm pain, back pain, hand pain, leg pain, foot pain, other Neurological: reports: seizures. denies: weakness, numbness, incoordination, change in speech, confusion, other All Systems: All other systems reviewed; all pertinent +/- noted in HPI/Subj - Medication Medications: Active Medications Generic Name Dose Route Start Last Admin Trade Name Freq PRN Reason Stop Dose Admin Acetaminophen 650 mg 08/29/20 18:06 09/02/20 13:47 Acetaminophen 325 Mg Tab PO 650 mg Q6H PRN Administration Fever > 101 or Headache Clindamycin HCl 300 mg 09/03/20 10:00 09/03/20 10:26 Clindamycin 150 Mg Cap PO 09/05/20 10:01 300 mg Q8H YUMIKO Administration Levetiracetam 1,000 mg 09/02/20 21:00 09/03/20 10:26 Levetiracetam 500 Mg Tab PO 1,000 mg BID YUMIKO Administration Polyethylene Glycol 17 gm 09/03/20 09:00 09/03/20 10:26 Polyethylene Glycol 3350 17 Gm Packet PO Not Given DAILY YUMIKO - Exam General Appearance: awake alert Eye: PERRL ENT: normocephalic atraumatic Neck: supple Respiratory: CTAB Cardiovascular: RRR Gastrointestinal: soft Extremities: no cyanosis Skin: normal turgor Neurological: CN's grossly intact, no focal deficits, no new deficit Musculoskeletal: normal tone, normal strength, no muscle wasting PSYCH: normal affect, normal behavior, A&O x 3, oriented to person, oriented to place, oriented to time Results - Labs Result Diagrams: 09/03/20 05:11 09/03/20 05:11 Lab results: WBC 7.1 thou/uL (4.8-10.8) 09/03/20 05:11 Hgb 12.6 g/dL (12.0-16.0) 09/03/20 05:11 Hct 38.6 % (36.0-47.0) 09/03/20 05:11 MCV 83.1 fL (78.0-98.0) 09/03/20 05:11 Plt Count 339 thou/uL (130-400) 09/03/20 05:11 Neutrophils % 55.3 % (42.0-75.0) 09/03/20 05:11 ABG pH 7.45 (7.35-7.45) 08/30/20 07:52 ABG pCO2 21.7 mmHg (35.0-45.0) L* 08/30/20 07:52 ABG pO2 149.1 mmHg (80.0-100.0) H 08/30/20 07:52 Sodium 143 mmol/L (136-145) 09/03/20 05:11 Potassium 3.4 mmol/L (3.5-5.1) L 09/03/20 05:11 Chloride 112 mmol/L (98-107) H 09/03/20 05:11 Carbon Dioxide 21 mmol/L (22-29) L 09/03/20 05:11 BUN 9 mg/dL (7.0-18.7) 09/03/20 05:11 Creatinine 0.60 mg/dL (0.6-1.1) 09/03/20 05:11 Glucose 79 mg/dL (70-105) 09/03/20 05:11 Lactic Acid 1.0 mmol/L (0.5-2.2) 08/29/20 14:34 Calcium 7.8 mg/dL (7.8-10.44) 09/03/20 05:11 Total Bilirubin 0.5 mg/dL (0.2-1.2) 08/29/20 14:34 AST 25 U/L (5-34) 08/29/20 14:34 ALT 55 U/L (8-55) 08/29/20 14:34 Alkaline Phosphatase 177 U/L (40-110) H 08/29/20 14:34 Serum Total Protein 6.8 g/dL (6.0-8.3) 08/29/20 14:34 Albumin 3.3 g/dL (3.5-5.0) L 08/29/20 14:34 Urine Ketones Negative mg/dL (Negative) 08/29/20 15:25 Urine Blood Negative (Negative) 08/29/20 15:25 Urine Nitrite Negative (Negative) 08/29/20 15:25 Ur Leukocyte Esterase Negative G[place]/uL (Negative) 08/29/20 15:25 - EKG Interpretation EKG: Normal sinus rhythm - Radiology Interpretation MRI - head Additional Comment: Intraparenchymal hemorrhage on MRI PN A/P (1) Grand mal seizure Code(s): G40.409 - OTH GENERALIZED EPILEPSY, NOT INTRACTABLE, W/O STAT EPI Status: Acute (2) Fever Code(s): R50.9 - FEVER, UNSPECIFIED Status: Acute (3) Intraparenchymal hemorrhage of brain Code(s): I61.9 - NONTRAUMATIC INTRACEREBRAL HEMORRHAGE, UNSPECIFIED Status: Acute - Plan Daily Plan: plan discussed w/ family, PT/OT ( at bedside), speech therapy Ms. 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 Patient stable on Keppra monotherapy with no further seizures since admission. MRI of the brain reviewed which was consistent with intraparenchymal hemorrhage. MR venogram did not show evidence of dural venous thrombosis. 2D echo showed ejection fraction of 55 to 60%. No thrombus or PFO. Carotid Dopplers did not show evidence of hemodynamically significant stenosis. Neurosurgery on board regarding intraparenchymal hemorrhage. Will follow up with a repeat MRI brain in 6 weeks. Neurochecks every 4 hours. Continue Keppra 1000 mg p.o. twice daily. Observe seizure precautions. Ativan 2 mg IV for seizure greater than 2 minutes. Follow-up with Dr. Henson as outpatient in 4 to 6 weeks with follow-up outpatient EEG. Continue home medications. Avoid antiplatelets and anticoagulants. PT/OT/speech. Continue medical management per primary team. Plan discussed in detail with the patient, at bedside and also the nursing staff.
[2020-09-03 14:40] LABS: HEX PHOS LA Tube 1 37.1 SEC; HEX PHOS LA Tube 2 35.8 SEC; Hexagonal Phospholipid Neut 1.2 SEC (0-8.0)
[2020-09-03 17:50] LABS: Cardiolipin IgG Ab 2.1 GPL-U/mL (<10 Negative); Cardiolipin IgM Ab Less than 0.8 MPL-U/mL (<10 Negative); EliA APS New Method **** NEW METHOD ****
[2020-09-04] MEDS ORDERED: NIFEdipine XL 30 MG TAB PO SCH (09:00)
--- NOTE | 2020-09-07 16:48 | DIS ---
DATE OF ADMISSION: 08/29/2020 DATE OF DISCHARGE: 09/03/2020 RESIDENT: Sulma Rodriguez MD, PGY-1 ADMITTING ATTENDING: Dr. Browne. DISCHARGE ATTENDING: Dr. Nicholas. CONSULTS: Neurosurgery, Neurology, Pulmonology. PROCEDURES: 1. Brain CT without contrast: Intraparenchymal hemorrhage with areas of extra- axial hemorrhage. 2. CT angio of the head and neck: Intra-axial hematoma in the left frontal lobe with surrounding vasogenic edema and evidence of mass effect. No evidence for dural venous thrombosis. 3. CT [place] [facility] angio. 4. Brain MRI: Prominent intra-axial hematoma within the left frontal lobe with a fluid level. Associated small volume subdural blood noted in the left frontal region with bilateral subarachnoid blood noted within the frontal regions near the vertex. Leptomeningeal enhancement with slight irregularity/nodularity within the left frontal region, significance uncertain. Question vasculitis. 5. Brain MRA: No convincing evidence for dural venous sinus thrombosis. 6. Carotid Doppler study: No abnormalities. 7. Echocardiogram: Ejection fraction 55% to 60%, normal ventricular size, no valvular defects. PRIMARY DIAGNOSIS: Intraparenchymal hemorrhage. SECONDARY DIAGNOSIS: Fever of unknown origin. DISCHARGE MEDICATIONS: 1. Clindamycin 300 mg p.o. q.8 hours. 2. Keppra 1000 mg p.o. b.i.d. 3. Nifedipine 30 mg p.o. daily. 4. Ibuprofen 800 mg q.8 hours p.r.n. 5. vitamin one daily. DISCONTINUED MEDICATIONS: None. HISTORY OF PRESENT ILLNESS: The patient is a 30-year-old, G3, P3 female with no significant past medical history, who presents for headache. She had a vaginal delivery on 08/25/2020, and was day 4 on presentation to the ER. She did receive an epidural during her delivery. According to the patient's , she had had some neck pain and stiffness since leaving the hospital. She also complained of headache and photosensitivity. On the day of admission, the patient began acting confused and so brought the patient to the ED. The patient was taken to have a CT brain done, report as above. Notable for intraparenchymal hemorrhage. Neurosurgery was consulted from the ED. The patient was taken back for CT angio and during the administration of contrast, experienced a grand mal seizure. The patient then had trouble maintaining air airway, so was sedated and intubated in the ED. The blood pressure in the ED 152/93, heart rate 83, oxygen 98% on room air. Labs on presentation to the ER, sodium 139, potassium 3.3, procal 0.03, magnesium 1.4, TSH 0.3, free T4 normal. White count 11.3. Hemoglobin 13.4. Labs drawn for evaluation of preeclampsia were all within normal limits. Neurology was consulted to help with management of seizures, and the patient was started on Keppra. The patient was started on empiric antibiotics for unknown reason why she had intraparenchymal hemorrhage. Pulmonology was consulted due to the patient being sedated in the ICU. Neurosurgery continued to follow the patient throughout hospital stay and felt no need for neurosurgical intervention at that time. Did order echo and carotid ultrasound to evaluate for embolus, report as above. Neurology was consulted and felt that this was likely an underlying vascular malformation that led to the bleed. Neurosurgery recommended the patient once discharged follow up in 6 weeks for repeat MRI. Echocardiogram and carotid ultrasound negative for any source of embolus. No clear etiology was discovered for cause of left frontal hematoma. During hospital stay, the patient improved everyday. She worked with PT, OT, and Speech. She was deemed safe to return home with home health. She was taken off the IV medications, started on oral medications and did well. The patient placed on nifedipine as Neurosurgery recommended tight blood pressure control with systolic blood pressure to be maintained less than 140. The patient is to follow up with Neurology, Dr. Maxwell as outpatient in 4 to 6 weeks with followup outpatient EEG. Upon discharge, the patient's disposition was stable. DISCHARGE INSTRUCTIONS: 1. Location, home with home health including PT, OT. 2. Diet, regular. 3. Activity, as tolerated. 4. Follow up: a. With primary care physician in 1 week. b. Neurosurgery in 6 weeks with repeat brain MRI. c. Neurology in 4 to 6 weeks with outpatient EEG. d. Speech outpatient. Job ID: [id number] [facility]
== END 2020-09-03 14:49 | disposition home health service (06) | DRG 776 ==
LOC: ERS 14:08 → CCU 16:10 → UNDOADMIN 17:01 → 2SE 08-30 20:56
PROVIDERS: ADMIT Family Medicine; ATTEND Family Medicine
PROC: 5A1935Z Respiratory Ventilation, Less than 24 Consecutive Hours (ICD-10-PCS; principal; 2020-08-29)
PROC: 0BH17EZ Insertion of Endotracheal Airway into Trachea, Via Natural or Artificial Opening (ICD-10-PCS; 2020-08-29)
DX: O99.43 Diseases of the circulatory system complicating the puerperium (principal); I61.1 Nontraumatic intracerebral hemorrhage in hemisphere, cortical; G93.41 Metabolic encephalopathy; O99.355 Diseases of the nervous system complicating the puerperium; O99.13 Other diseases of the blood and blood-forming organs and certain disorders involving the immune mechanism complicating the puerperium; Z20.828 Contact with and (suspected) exposure to other viral communicable diseases; O99.285 Endocrine, nutritional and metabolic diseases complicating the puerperium; E87.6 Hypokalemia; D72.829 Elevated white blood cell count, unspecified; G40.409 Other generalized epilepsy and epileptic syndromes, not intractable, without status epilepticus; Z79.899 Other long term (current) drug therapy; Z78.1 Physical restraint status
CPT/HCPCS: 31500; 36415; 36416; 36600; 51701; 70450; 70496; 70498; 70544; 70553; 71045; 76856; 80048; 80053; 80061; 80202; 81003; 81240; 81241; 82570; 82805; 83036; 83090; 83605; 83735; 84145; 84156; 84439; 84443; 85025; 85240; 85300; 85303; 85305; 85307; 85379; 85598; 85610; 85730; 86147; 87040; 87086; 93306; 93880; 94002; 94003; 96365; 96366; 96367; 96368; 96375; 96376; 99292; A9579; C9113; J0692; J1100; J1953; J2060; J2270; J2704; J3010; J3370; J3475; J3480; J3490; J7050; Q9967; S0028; U0002